=== PATIENT | female | born 1945 | race Caucasian/White ===

== ENCOUNTER 2017-03-28 18:38 | Inpatient (IN) | payer MEDICARE ==
[~2017-03-28] VITALS: Ht 167.6 cm; Wt 82.7 kg
[~2017-03-28 18:38] MED LIST: ALB6.7R INH; ALLO-2 PO; AML5 PO; AMLO-96 PO; AMOX-559 PO; ASPI1TAB35 PO; ATOR-1 PO; AZEL205.; AZIT-17 PO; CEPH500C24 PO; CHOL100052 PO; CLIN300C99 PO; CYCL10TA29 PO; CYCL1DRO6 OP; CYCL1DRO6 OU; DIPH-618 PO; DUL100/5PT INH; DUL30 PO; DULO30CA35 PO; DULO60CA56 PO; DULO60CA7 PO; DUONEB INH; ERTA1VIA2 IV; FISH OIL 500 M500 MG PO; FLU150 PO; FLU180SY9 IM; FLU45SYR25 IM ONLY; FLUC150T40 PO; FLUT16SP19 NS; FOLTX PO; FURO-43 PO; FURO20TA19 PO; GAB800PT PO; GABA-549 PO; HYDR30CR10 VA; IBU600 PO; KRIL1CAP6 PO; LEV112 PO; LEV125 PO; LEVO-85 PO; LEVO112T43 PO; LEVO112T9 PO; LEVO137T23 PO; LEVO25TA61 PO; LEVO50TA86 PO; LEVO75TA73 PO; LOSA100T62 PO; LOSA100T67 PO; LUBI24CA8 PO; MELO-150 PO; MELO-207 PO; MET800 PO; META800T18 PO; METO100T20 PO; METO50TA19 PO; MORP-181 PO; MORP20CA16 PO; MOXI400T28 PO; Multivitamins PO; NITR-1 PO; NITR-105 PO; OMEG500C7 PO; OXYB5TAB86 PO; OXYC-865 PO; OXYC-870 PO; OXYC-944 PO; OXYGEN; PNEU0.5D3 IM; POTA-35 PO; POTC540 PO; PRAV40TA78 PO; PRED-314 PO; SIMV-44 PO; SOLI10TA8 PO; VITA150T2 PO; VITA1CAP46 PO; [UNRECOGNIZED DRUG - CODE]; [UNRECOGNIZED DRUG - CODE] PO; [UNRECOGNIZED DRUG - CODE] PO; [UNRECOGNIZED DRUG - CODE] PO
[2017-03-28] MEDS ORDERED: ALBUTEROL/IPRATROPIUM 3 ML NEB NEB ONE (19:15)
--- NOTE | 2017-03-28 19:39 | ER Report ---
History and Physical Time Seen By MD: 18:44 Hx. of Stated Complaint: SOB, "NOT ACTING RIGHT" PER DAUGHTER X 2 DAYS, COLD ALL THE TIME HPI/ROS CHIEF COMPLAINT: Cough, fever HISTORY OF PRESENT ILLNESS: This is a 71-year-old female accompanied by her daughter, who presents the ED with complaint of cough and fever for the past week. Daughter states that the patient is most and oxygen at home during the day but she has not been on this or months. Patient denies any shortness of breath but daughter states that the patient has been confused recently. She states that the patient has had intermittent cough and wanted to get cough medications. She states that the patient was uncertain of the day. Patient has not had any nausea or vomiting. She denies any chest pain. Patient does not of the month but does not know the day. She said that it maybe Saturday. REVIEW OF SYSTEMS: Constitutional: See History of present illness. Eyes: No discharge. ENT: No sore throat. Cardiovascular: See history of present illness. No palpitations. Respiratory: . See history of present illness. Gastrointestinal: No abdominal pain, no vomiting. Genitourinary: No hematuria. Musculoskeletal: No back pain. Skin: No rashes. Neurological: No headache. Allergies: Coded Allergies: Sulfa (Sulfonamide Antibiotics) (Verified Allergy, Mild, SWELLING, ) Home Meds Active Scripts Levothyroxine Sodium (Levo-T) 112 Mcg Tablet, 1 TAB PO DAILY, #60 TAB 0 Refills Prov:DANNI STEWART MD 02/20/17 Gabapentin (GABAPENTIN) 300 Mg Capsule, 3 TAB PO QAM, #630 CAPSULE 3 Refills TAKE 2 in am and 5 in pm Prov:DANNI STEWART MD 02/11/17 Oxybutynin Chloride (OXYBUTYNIN CHLORIDE) 5 Mg Tablet, 1 TAB PO QDAY, #90 TAB 3 Refills Prov:DANNI STEWART MD 02/11/17 Duloxetine HCl (Duloxetine HCl) 60 Mg Capsule.dr, 2 CAP PO DAILY, #180 TAB 3 Refills Prov:DANNI STEWART MD 02/11/17 Atorvastatin Calcium (ATORVASTATIN CALCIUM) 80 Mg Tablet, 1 TAB PO QDAY, #90 TAB 3 Refills Prov:DANNI STEWART MD 02/11/17 Metoprolol Succinate (METOPROLOL SUCCINATE) 100 Mg Tab.er.24h, 1 TAB PO QDAY, # 90 TAB 3 Refills Prov:DANNI STEWART MD 02/11/17 Allopurinol (Allopurinol) 300 Mg Tablet, 1 TAB PO DAILY, #90 TAB 3 Refills Prov:DANNI STEWART MD 02/11/17 Cyclobenzaprine Hcl (CYCLOBENZAPRINE HCL) 10 Mg Tablet, 1 TAB PO QHS, #90 TAB 3 Refills Prov:DANNI STEWART MD 02/11/17 [place]-3 (FISH OIL 500 MG SOFTGEL) 500 Mg Cap, 500 MG PO QDAY, #30 CAP Prov:CHRISTY BRANHAM MD 10/19/15 Cyclosporine (RESTASIS) 1 Each Droperette, 1 EACH OU BID, #1 BOT Prov:CHRISTY BRANHAM MD 10/19/15 Reported Medications Diphenhydramine Hcl (DIPHENHYDRAMINE HCL) 25 Mg Tablet, 25 MG PO PRN, TAB 02/11/17 Aspirin/Acetaminophen/Caffeine (EXCEDRIN EXTRA STRENGTH CAPLET) 1 Each Tablet, 1 EACH PO 02/11/17 Multivits,Th W-Fe,Other Min (COMPLETE MULTIVITAMIN) 1 Each Tablet, 1 TAB PO DAILY 09/08/15 Vitamin B Complex (VITAMIN B COMPLEX) 1 Each Capsule, 1 EACH PO QDAY, CAPSULE 12/24/13 [Oxygen ] No Conflict Check, 2-3 L NA DAILY ON CONTINUOUSLY 08/26/13 Oxycodone Hcl/Acetaminophen (PERCOCET 10-325 MG TABLET) 1 Each Tablet, 1 EACH PO QID Y for PAIN q 4 hr as needed for pain 08/23/13 Morphine Sulfate (MS CONTIN) 15 Mg Tablet.er, 15 MG PO QID 08/23/13 Discontinued Scripts Levofloxacin 500 Mg Tab (LEVAQUIN 500 MG TAB) 500 Mg Tablet, 500 MG PO DAILY, # 5 TAB Prov:DANNI STEWART MD 02/27/17 Sodium Chloride/Nahco3/Kcl/Peg (PEG-3350 SOLUTION) 4,000 Ml Soln.recon, 1 GAL PO ONCE, #1 GAL 0 Refills Prov:SHEILA SPARKS MD 02/27/17 [Multivitamins] 1 EA TAB No Conflict Check, 1 EACH PO QDAY, #30 TAB Prov:CHRISTY BRANHAM MD 10/19/15 Reviewed Nurses Notes: Yes Old Medical Records Reviewed: Yes Hx Smoking: No Smoking Status: Former Smoker Exposure to Second Hand Smoke?: No Hx Substance Use Disorder: No Hx Alcohol Use: Yes Constitutional Vital Sign - Last 24 Hours 03/28/17 03/28/17 03/28/17 03/28/17 18:43 18:45 18:46 18:53 Temp 98.8 Pulse 87 86 Resp 16 15 B/P (MAP) 148/75 117/111 (113) 148/75 (99) Pulse Ox 77 93 O2 Delivery Room Air 03/28/17 03/28/17 03/28/17 03/28/17 19:00 19:08 19:23 19:30 Pulse 82 81 Resp 18 13 B/P (MAP) 129/72 (91) ???/??? (1665) Pulse Ox 92 03/28/17 03/28/17 03/28/17 03/28/17 19:33 19:35 19:38 20:15 Pulse 80 84 86 Resp 28 24 B/P (MAP) 119/51 (73) Physical Exam General Appearance: The patient is alert, has no immediate need for airway protection and no signs of toxicity. She appears to be no acute distress. Eyes: Pupils equal and round no pallor or injection. ENT, Mouth: Mucous membranes are moist. Respiratory: There are no retractions. Bilateral wheezing appreciated. Cardiovascular: Regular rate and rhythm. Gastrointestinal: Abdomen is soft and non tender, no masses, bowel sounds normal. Neurological: Cranial nerves II through XII intact. Skin: Warm and dry, no rashes. Musculoskeletal: Neck is supple non tender. Extremities are nontender, nonswollen and have full range of motion. DIFFERENTIAL DIAGNOSIS: After history and physical exam differential diagnosis was considered for shortness of breath including but not limited to pulmonary infectious process, COPD, asthma, pulmonary embolus and congestive heart failure. Medical Decision Making Data Points Result Diagram: 03/28/17193903/28/171939 Laboratory Hematology Test 03/28/17 19:40 Red Blood Count 4.66 M/uL (4.17-5.56) Mean Corpuscular Volume 96.6 fL (80.0-96.0) Mean Corpuscular Hemoglobin 33.3 pg (26.0-33.0) Mean Corpuscular Hemoglobin Concent 34.5 g/dL (32.0-36.0) Red Cell Distribution Width 14.8 % (11.5-14.5) Mean Platelet Volume 7.4 fL (7.2-11.1) Neutrophils (%) (Auto) 73.1 % (39.4-72.5) Lymphocytes (%) (Auto) 13.0 % (17.6-49.6) Monocytes (%) (Auto) 9.5 % (4.1-12.4) Eosinophils (%) (Auto) 3.4 % (0.4-6.7) Basophils (%) (Auto) 1.0 % (0.3-1.4) Nucleated RBC Relative Count (auto) 0.1 /100WBC Neutrophils # (Auto) 6.1 K/uL (2.0-7.4) Lymphocytes # (Auto) 1.1 K/uL (1.3-3.6) Monocytes # (Auto) 0.8 K/uL (0.3-1.0) Eosinophils # (Auto) 0.3 K/uL (0.0-0.5) Basophils # (Auto) 0.1 K/uL (0.0-0.1) Nucleated RBC Absolute Count (auto) 0.01 K/uL Prothrombin Time 14.0 seconds (12.0-14.4) Prothromb Time International Ratio 1.08 Activated Partial Thromboplast Time 28 seconds (23-35) Sodium Level 138 mmol/L (137-145) Potassium Level 3.9 mmol/L (3.5-5.0) Chloride Level 101 mmol/L (98-107) Carbon Dioxide Level 24 mmol/L (22-31) Blood Urea Nitrogen 37 mg/dl (7-18) Creatinine 1.20 mg/dl (0.52-1.04) Glomerular Filtration Rate Calc 44.0 Random Glucose 130 mg/dl (75-110) Calcium Level 9.2 mg/dl (8.4-10.2) Total Bilirubin 0.7 mg/dl (0.2-1.3) Aspartate Amino Transf (AST/SGOT) 20 U/L (0-35) Alanine Aminotransferase (ALT/SGPT) 35 U/L (0-56) Alkaline Phosphatase 109 U/L (0-126) Troponin I < 0.012 ng/ml B-Type Natriuretic Peptide 68 pg/ml (0-100) Total Protein 7.1 gm/dl (6.3-8.2) Albumin 3.9 g/dl (3.5-5.0) Chemistry Test 03/28/17 19:40 White Blood Count 8.4 k/uL (4.5-11.0) Red Blood Count 4.66 M/uL (4.17-5.56) Hemoglobin 15.5 g/dL (12.0-16.0) Hematocrit 45.0 % (34.0-47.0) Mean Corpuscular Volume 96.6 fL (80.0-96.0) Mean Corpuscular Hemoglobin 33.3 pg (26.0-33.0) Mean Corpuscular Hemoglobin Concent 34.5 g/dL (32.0-36.0) Red Cell Distribution Width 14.8 % (11.5-14.5) Platelet Count 253 K/uL (150-450) Mean Platelet Volume 7.4 fL (7.2-11.1) Neutrophils (%) (Auto) 73.1 % (39.4-72.5) Lymphocytes (%) (Auto) 13.0 % (17.6-49.6) Monocytes (%) (Auto) 9.5 % (4.1-12.4) Eosinophils (%) (Auto) 3.4 % (0.4-6.7) Basophils (%) (Auto) 1.0 % (0.3-1.4) Nucleated RBC Relative Count (auto) 0.1 /100WBC Neutrophils # (Auto) 6.1 K/uL (2.0-7.4) Lymphocytes # (Auto) 1.1 K/uL (1.3-3.6) Monocytes # (Auto) 0.8 K/uL (0.3-1.0) Eosinophils # (Auto) 0.3 K/uL (0.0-0.5) Basophils # (Auto) 0.1 K/uL (0.0-0.1) Nucleated RBC Absolute Count (auto) 0.01 K/uL Prothrombin Time 14.0 seconds (12.0-14.4) Prothromb Time International Ratio 1.08 Activated Partial Thromboplast Time 28 seconds (23-35) Glomerular Filtration Rate Calc 44.0 Calcium Level 9.2 mg/dl (8.4-10.2) Total Bilirubin 0.7 mg/dl (0.2-1.3) Aspartate Amino Transf (AST/SGOT) 20 U/L (0-35) Alanine Aminotransferase (ALT/SGPT) 35 U/L (0-56) Alkaline Phosphatase 109 U/L (0-126) Troponin I < 0.012 ng/ml B-Type Natriuretic Peptide 68 pg/ml (0-100) Total Protein 7.1 gm/dl (6.3-8.2) Albumin 3.9 g/dl (3.5-5.0) Coagulation Test 03/28/17 19:40 Prothrombin Time 14.0 seconds Prothromb Time International Ratio 1.08 Activated Partial Thromboplast Time 28 seconds EKG/Imaging EKG Interpretation 12 lead EKG: Rhythm: normal sinus rhythm, rate [address] segments: No acute ST changes identified. Monitor Interpretation: Normal Sinus Rhythm Imaging CXR: IMPRESSION: Perihilar and infrahilar mild peribronchial inflammation is suggestive of a bronchitis versus reactive airway disease although an aspiration pneumonitis could be considered in the appropriate setting as well. Report Dictated By: Ayo Sepncer MD at 03/28/2017 8:22 PM Report E-Signed By: Ayo Spencer MD at 03/28/2017 8:[address] Head: IMPRESSION: 1. No CT evidence of acute intracranial pathology. 2. Mild chronic age-related changes. Report Dictated By: Austin Reaves MD at 03/28/2017 8:34 PM Report E-Signed By: Austin Reaves MD at 03/28/2017 8:38 PM ED Course/Re-evaluation ED Course Will obtain labs, chest x-ray, EKG. Patient initially was 76% on room air on arrival. She was placed on 2 L of oxygen and now is at 91%. Will give patient DuoNeb treatment. 03/28/2017 9:02:58 pm - discussed with patient and daughter all labs, imaging, EKG. It appears that she does have some bronchial inflammation noted on her chest x-ray. Her wheezing has resolved with the DuoNeb treatment. Likely she has a COPD exacerbation. We will treat with prednisone, nebulizer treatments, Zithromax. Patient needs to continue oxygen therapy at home. Discussed this with her and she states that she will be using this now. Decision to Disposition Date: Mar 28, 2017 Decision to Disposition Time: 21:03 Depart Departure Latest Vital Signs Vital Signs Date Time Temp Pulse Resp B/P (MAP) Pulse Ox O2 Delivery O2 Flow Rate FiO2 03/28/17 20:15 119/51 (73) 03/28/17 19:38 86 24 03/28/17 19:23 92 03/28/17 18:43 98.8 Room Air Impression: Primary Impression: Acute exacerbation of chronic obstructive pulmonary disease (COPD) Condition: Improved Disposition: HOME OR SELF-CARE New Scripts Ipratropium/Albuterol Sulfate (IPRAT-ALBUT 0.5-3(2.5) MG/3 ML) 3 Ml Ampul.neb 3 ML IH PRN, #1 BOX Prov: ROSALBA DUMONT PA-C 03/28/17 Azithromycin (ZITHROMAX) 250 Mg Tablet 0 PO QDAY, #6 TAB Prov: ROSALBA DUMONT PA-C 03/28/17 Prednisone (PREDNISONE) 20 Mg Tablet 20 MG PO BID, #10 TAB Prov: ROSALBA DUMONT PA-C 03/28/17 Patient Instructions: COPD (Chronic Obstructive Pulmonary Disease) (ED) Additional Instructions: Stay well-hydrated. Follow-up with primary care provider in one to 2 days. If having any worsening or concerning symptoms may return to the emergency department. ROSALBA DUMONT PA-C Mar 28, 2017 19:39
[2017-03-28 19:54] LABS: PLATELET COUNT, AUTOMATED 253 K/uL (150-450)
[2017-03-28 19:57] LABS: INR 1.08
[2017-03-28] MEDS ORDERED: NS(*) 0.9% 500 ML BAG 500 ML IV ONE (20:20)
--- NOTE | 2017-03-28 20:27 | RADIOLOGY IMAGING REPORT ---
FACILITY: [facility] PATIENT NAME: Lauren Kuhn : 1945 MR: [id number] V: [id number] EXAM DATE: ORDERING PHYSICIAN: ROSALBA DUMONT TECHNOLOGIST: Location: [facility] - [place] Patient: Lauren Kuhn : 1945 Visit/Account:[id number] Date of Sevice: 03/28/2017 Examination: CHEST PA AND LAT Comparison: 11/11/2015 History: Respiratory distress Findings: Consolidation or nodule. Mild predominantly perihilar and infrahilar peribronchial inflamma tion. No pneumothorax, edema, or effusion. Cardiac and hilar contour size is within normal limits. In completely visualized lumbar fusion hardware. No acute osseous abnormality. IMPRESSION: Perihilar and infrahilar mild peribronchial inflammation is suggestive of a bronchitis versus reactiv e airway disease although an aspiration pneumonitis could be considered in the appropriate setting as well. Report Dictated By: Ayo Spencer MD at 03/28/2017 8:22 PM Report E-Signed By: Ayo Spencer MD at 03/28/2017 8:24 PM WSN:[id number]
--- NOTE | 2017-03-28 20:42 | RADIOLOGY IMAGING REPORT ---
FACILITY: [facility] PATIENT NAME: Lauren Kuhn : 1945 MR: [id number] V: [id number] EXAM DATE: ORDERING PHYSICIAN: ROSALBA DUMONT TECHNOLOGIST: Location: [facility] - [place] Patient: Lauren Kuhn : 1945 Visit/Account:[id number] Date of Sevice: 03/28/2017 EXAMINATION: CT head without IV contrast HISTORY: Confusion. TECHNIQUE: Axial CT images of the head were obtained from the vertex to the skull base without IV c ontrast, with coronal and sagittal 2D reconstructed images. One of the following dose optimization techniques was utilized in the performance of this exam: Autom ated exposure control; adjustment of the mA and/or kV according to the patient's size; or use of an i terative reconstruction technique. Specific details can be referenced in the facility's radiology C T exam operational policy. COMPARISON: None. FINDINGS: There is mild age-appropriate parenchymal volume loss, with slight patchy low attenuation in the deep white matter, suggesting chronic small vessel ischemic change. No CT evidence of intracranial hemorrhage, mass lesion, or acute infarct. No midline shift or extra-a xial fluid collections. Huang-white differentiation is maintained. The calvarium is intact. The partially visualized paranasal sinuses and mastoid air cells are unopaci fied. IMPRESSION: 1. No CT evidence of acute intracranial pathology. 2. Mild chronic age-related changes. Report Dictated By: Austin Reaves MD at 03/28/2017 8:34 PM Report E-Signed By: Austin Reaves MD at 03/28/2017 8:38 PM WSN:[id number]
--- NOTE | 2017-03-28 21:24 | EKG ---
FACILITY: [facility] PATIENT NAME: JENNIFER SADLER : [id number] MR: [id number] V: [id number] EXAM DATE: ORDERING PHYSICIAN: ROSALBA DUMONT TECHNOLOGIST: ASHLEY Test Reason : SOB Blood Pressure : / mmHG Vent. Rate : 080 BPM Atrial Rate : 080 BPM P-R Int : 168 ms QRS Dur : 088 ms QT Int : 374 ms P-R-T Axes : 040 068 090 degrees QTc Int : 431 ms Normal sinus rhythm Possible Left atrial enlargement Nonspecific ST abnormality Abnormal ECG When compared with ECG of 10-OCT-2015 05:30, Nonspecific T wave abnormality now evident in Lateral leads Confirmed by HAZEL BURGER ([id number]) on 03/29/2017 12:26:51 AM Referred By: Confirmed By:HAZEL BURGER
[2017-03-28] MEDS ORDERED: IPRA3AMP21 IH (21:25)
[2017-03-28] MEDS ORDERED: AZIT-1 PO (21:25)
[2017-03-28] MEDS ORDERED: PRED20TA6 PO (21:25)
[2017-03-28] MEDS ORDERED: cefTRIAXone 1 GM VIAL IVP ONE (23:05)
[2017-03-29] MEDS ORDERED: INFLUENZA VIRUS VAC 0.5 ML SYR IM ONLY ONE
[2017-03-29] MEDS ORDERED: ALBUTEROL/IPRATROPIUM 3 ML NEB NEB PRN (00:10)
[2017-03-29] MEDS ORDERED: AZITHROMYCIN(*) 500 MG 500 MG ONE (00:16)
[2017-03-29] MEDS ORDERED: WATER STERILE(*) 10 ML VIAL 10 ML ONE (00:16)
[2017-03-29] MEDS ORDERED: NS(*) 0.9% 250 ML BAG 250 ML ONE (00:16)
[2017-03-29 00:28] VITALS: BP 113/55
--- NOTE | 2017-03-29 00:39 | History & Physical ---
History of Present Illness History of Present Illness 71yo female with a h/o chronic back pain who was brought to the ER for confusion. She was in her normal state of health until this afternoon. Her noted that she was saying bizarre things. The daughter came to check on her and noted the confusion, also. She was talking about her son and mixing up events. The patient has had a cough for weeks. She hasn't had any focal weakness. No cp/n/v/abdominal pain. In the ER, it was felt that she had a COPD exacerbation. She given a DuoNeb and 500cc of fluid. The patient's mental status was fairly clear. She was going to go home and then became confused again. History Problems: (1) Ventral hernia without obstruction or gangrene Status: Chronic (2) Hypertension Status: Chronic (3) Overweight (BMI 25.0-29.9) Status: Chronic (4) Post laminectomy syndrome Status: Chronic (5) Impaired fasting glucose Status: Chronic Home Meds Active Scripts Ipratropium/Albuterol Sulfate (IPRAT-ALBUT 0.5-3(2.5) MG/3 ML) 3 Ml Ampul.neb, 3 ML IH PRN, #1 BOX Prov:ROSALBA DUMONT PA-C 03/28/17 Azithromycin (ZITHROMAX) 250 Mg Tablet, 0 PO QDAY, #6 TAB Prov:ROSALBA DUMONT PA-C 03/28/17 Prednisone (PREDNISONE) 20 Mg Tablet, 20 MG PO BID, #10 TAB Prov:ROSALBA DUMONT PA-C 03/28/17 Levothyroxine Sodium (Levo-T) 112 Mcg Tablet, 1 TAB PO DAILY, #60 TAB 0 Refills Prov:DANNI STEWART MD 02/20/17 Gabapentin (GABAPENTIN) 300 Mg Capsule, 3 TAB PO QAM, #630 CAPSULE 3 Refills TAKE 2 in am and 5 in pm Prov:DANNI STEWART MD 02/11/17 Oxybutynin Chloride (OXYBUTYNIN CHLORIDE) 5 Mg Tablet, 1 TAB PO QDAY, #90 TAB 3 Refills Prov:DANNI STEWART MD 02/11/17 Duloxetine HCl (Duloxetine HCl) 60 Mg Capsule.dr, 2 CAP PO DAILY, #180 TAB 3 Refills Prov:DANNI STEWART MD 02/11/17 Atorvastatin Calcium (ATORVASTATIN CALCIUM) 80 Mg Tablet, 1 TAB PO QDAY, #90 TAB 3 Refills Prov:DANNI STEWART MD 02/11/17 Metoprolol Succinate (METOPROLOL SUCCINATE) 100 Mg Tab.er.24h, 1 TAB PO QDAY, # 90 TAB 3 Refills Prov:DANNI STEWART MD 02/11/17 Allopurinol (Allopurinol) 300 Mg Tablet, 1 TAB PO DAILY, #90 TAB 3 Refills Prov:DANNI STEWART MD 02/11/17 Cyclobenzaprine Hcl (CYCLOBENZAPRINE HCL) 10 Mg Tablet, 1 TAB PO QHS, #90 TAB 3 Refills Prov:DANNI STEWART MD 02/11/17 [place]-3 (FISH OIL 500 MG SOFTGEL) 500 Mg Cap, 500 MG PO QDAY, #30 CAP Prov:CHRISTY BRANHAM MD 10/19/15 Cyclosporine (RESTASIS) 1 Each Droperette, 1 EACH OU BID, #1 BOT Prov:CHRISTY BRANHAM MD 10/19/15 Reported Medications Diphenhydramine Hcl (DIPHENHYDRAMINE HCL) 25 Mg Tablet, 25 MG PO PRN, TAB 02/11/17 Aspirin/Acetaminophen/Caffeine (EXCEDRIN EXTRA STRENGTH CAPLET) 1 Each Tablet, 1 EACH PO 02/11/17 Multivits,Th W-Fe,Other Min (COMPLETE MULTIVITAMIN) 1 Each Tablet, 1 TAB PO DAILY 09/08/15 Vitamin B Complex (VITAMIN B COMPLEX) 1 Each Capsule, 1 EACH PO QDAY, CAPSULE 12/24/13 [Oxygen ] No Conflict Check, 2-3 L NA DAILY ON CONTINUOUSLY 08/26/13 Oxycodone Hcl/Acetaminophen (PERCOCET 10-325 MG TABLET) 1 Each Tablet, 1 EACH PO QID Y for PAIN q 4 hr as needed for pain 08/23/13 Morphine Sulfate (MS CONTIN) 15 Mg Tablet.er, 15 MG PO QID 08/23/13 Discontinued Scripts Levofloxacin 500 Mg Tab (LEVAQUIN 500 MG TAB) 500 Mg Tablet, 500 MG PO DAILY, # 5 TAB Prov:DANNI STEWART MD 02/27/17 Sodium Chloride/Nahco3/Kcl/Peg (PEG-3350 SOLUTION) 4,000 Ml Soln.recon, 1 GAL PO ONCE, #1 GAL 0 Refills Prov:SHEILA SPARKS MD 02/27/17 [Multivitamins] 1 EA TAB No Conflict Check, 1 EACH PO QDAY, #30 TAB Prov:CHRISTY BRANHAM MD 10/19/15 Allergies: Coded Allergies: Sulfa (Sulfonamide Antibiotics) (Verified Allergy, Mild, SWELLING, ) Patient History: FH: COPD (chronic obstructive pulmonary disease) SISTER, Age:70 SISTER, Age:60 FH: breast cancer MOTHER, , Age:69 FH: liver cancer FATHER, , Age:69 FH: lung cancer BROTHER, , Age:62 FH: ovarian cancer MOTHER, , Age:69 FH: smoking FATHER, , Age:69 SISTER, Age:70 SISTER, Age:60 BROTHER, , Age:62 Hx Smoking: No Smoking Status: Former Smoker Exposure to Second Hand Smoke?: No Caffeine Intake: Tea Caffeine/Cups Per Day: 12 Hx Alcohol Use: Yes Hx Substance Use Disorder: No Social Drug Use: Never Review of Systems All Systems Reviewed/Normal: Yes, Except as Noted Exam Vital Signs Vital Signs Date Time Temp Pulse Resp B/P (MAP) Pulse Ox O2 Delivery O2 Flow Rate FiO2 03/28/17 22:59 100.2 03/28/17 21:36 127/63 (84) 03/28/17 21:35 82 22 03/28/17 20:50 93 03/28/17 20:00 2.0 03/28/17 18:43 Room Air General Appearance: Awake, No Acute Distress Neuro: Other (No facial droop. Follows commands. Equal strength in the extremities. Confused to place and date. Thinks she is with her son.) Cardiovascular: Regular Rate and Rhythm Respiratory: Other (Bibasilar insp crackles) GI: Abd Soft and Non-Tender Extremities: No Edema Integumentary: Other (Erythema on ankles and feet bilaterally. <2 second capillary refill. Strong DP pulses bilaterally) Medical Decision Making Data Points Result Diagram: 03/28/17193903/28/171939 Item Value Date Time Neutrophils (%) (Auto) 73.1 % H 03/28/171939 Lymphocytes (%) (Auto) 13.0 % L 03/28/171939 Hemoglobin 16.1 g/dL H 02/08/17 1654 Hemoglobin 15.5 g/dL 03/28/171939 Hemoglobin 17.5 g/dL H 09/27/16 1454 Creatinine 1.20 mg/dl H 03/28/171939 Blood Urea Nitrogen 37 mg/dl H 03/28/171939 Blood Urea Nitrogen 18 mg/dl 02/08/17 1654 Creatinine 0.80 mg/dl 02/08/171653 Random Glucose 130 mg/dl H 03/28/171939 Random Glucose 103 mg/dl 02/08/174 Troponin I < 0.012 ng/ml 03/28/171939 B-Type Natriuretic Peptide 68 pg/ml 03/28/171939 Alkaline Phosphatase 109 U/L 03/28/171939 Alanine Aminotransferase (ALT/SGPT) 35 U/L 03/28/171939 Aspartate Amino Transf (AST/SGOT) 20 U/L 03/28/171939 Total Bilirubin 0.7 mg/dl 03/28/171939 Calcium Level 9.2 mg/dl 03/28/171939 Arterial Blood pH 7.33 L 03/28/172254 Arterial Blood Partial Pressure CO2 39 mmHg H 03/28/172254 Arterial Blood Partial Pressure O2 57 mmHg L 03/28/172254 Arterial Blood HCO3 20 mmol/L 03/28/172254 Arterial Blood Oxygen Saturation 86 % L 03/28/172254 EKG / Imaging Imaging Head CT - 1. No CT evidence of acute intracranial pathology. 2. Mild chronic age-related changes. CXR - Perihilar and infrahilar mild peribronchial inflammation is suggestive of a bronchitis versus reactive airway disease although an aspiration pneumonitis could be considered in the appropriate setting as well. Assessment and Plan Problems: (1) Acute exacerbation of chronic obstructive pulmonary disease (COPD) Status: Acute Assessment & Plan: She presented with worsening cough, wheezing and hypoxia. She developed a fever to 100.2 in the ER. No obvious infiltrate on CXR. She is not wheezy on my exam. Will not given any steroids at this time but treat with DuoNeb as needed. Ceftriaxone and Azithromycin started and blood cultures pending. Recheck CXR in the morning after hydration. (2) Confusion Status: Acute Assessment & Plan: Likely secondary to chronic medications for back pain and acute illness. We need to clarify what the patient is taking. Will continue Gabapentin but at a lower dose. Will hold cyclobenzaprine. Will decrease Percocet to 5/325 prn. Will continue MS Contin. Head CT was wnl. Might need an MRI if continuing to have waxing and waning symptoms. (3) Elevated serum creatinine Status: Acute Assessment & Plan: Likely secondary to dehydration. Will hydrate and follow. Lactate in the morning. She did have a mild metabolic acidosis on ABG. (4) Impaired fasting glucose Status: Chronic Assessment & Plan: Will recheck glucose tomorrow. (5) Hypothyroidism Status: Chronic Assessment & Plan: Continue levothyroxine. (6) Hypertension Status: Chronic Assessment & Plan: Continue Toprol. (7) Post laminectomy syndrome Status: Chronic Assessment & Plan: She is on Cymbalta, MS Contin, Gabapentin, Percocet and Flexeril. See above. Copies to: DANNI STEWART MD Venous Thromboembolism Antithrombotics Is Pt On Any Antithrombotics?: No Exam Sepsis Risk: No Definite Risk HAZEL BURGER MD Mar 29, 2017 00:39
[2017-03-29] MEDS: NS(*) 0.9% 1000 ML BAG 1,000 ML IV PRN ×2 (00:54→17:28)
[2017-03-29] MEDS: AZITHROMYCIN(*) 500 MG 500 MG in NS(*) 0.9% 250 ML BAG 250 ML IVPB SCH ×2 (00:55→01:00)
[2017-03-29 04:15] VITALS: BP 129/57
[2017-03-29] MEDS: LEVOTHYROXINE SOD 0.112 MG TAB PO SCH (05:59)
[2017-03-29 06:09] LABS: PLATELET COUNT, AUTOMATED 240 K/uL (150-450)
--- NOTE | 2017-03-29 06:51 | RADIOLOGY IMAGING REPORT ---
FACILITY: [facility] PATIENT NAME: Lauren Kuhn : 1945 MR: [id number] V: [id number] EXAM DATE: ORDERING PHYSICIAN: HAZEL BURGER TECHNOLOGIST: Location: [facility] Patient: Lauren Kuhn : 1945 Visit/Account:[id number] Date of Sevice: 03/29/2017 SINGLE AP RADIOGRAPH OF THE CHEST 03/29/2017 6:00 AM. INDICATION: hypoxia, fever COMPARISON: 03/28/2017. FINDINGS: Is increased patchy opacification at the left lower lung with associated volume loss. Right lung is well expanded and clear. No definite pleural effusion or pneumothorax. Heart size is normal. IMPRESSION: Left base opacity with volume loss likely at least partially due to atelectasis, though u nderlying infectious consolidation and aspiration are also considerations. Report Dictated By: Odell Jenkins MD at 03/29/2017 6:46 AM Report E-Signed By: Odell Jenkins MD at 03/29/2017 6:47 AM WSN:[id number]
[2017-03-29 08:11] VITALS: BP 124/65
[2017-03-29] MEDS: MORPHINE CR 15 MG TABCR PO SCH ×4 (09:00→21:29)
[2017-03-29] MEDS: DULoxetine HCL 30 MG CAPCR PO SCH (09:29)
[2017-03-29] MEDS: GABAPENTIN 300 MG CAP PO SCH ×2 (09:29→21:29)
[2017-03-29] MEDS: METOPROLOL SUCC XL 50 MG TABCR 50 MG TAB.ER.24H PO SCH (09:29)
[2017-03-29] MEDS: ALLOPURINOL 300 MG TAB PO SCH (09:29)
[2017-03-29] MEDS: OXYBUTYNIN CHL 5 MG TAB PO SCH (09:30)
[2017-03-29] MEDS: cycloSPORINE 0.05% EMUL 1 DROP OU SCH ×2 (09:30→21:29)
[2017-03-29] MEDS: ENOXAPARIN 40 MG/0.4ML SYR SC SCH (09:30)
[2017-03-29 11:31] VITALS: BP 136/77
[2017-03-29] MEDS ORDERED: guaiFENesin/CODEINE 5 ML UDBTL PO PRN (12:20)
[2017-03-29 14:28] VITALS: Ht 167.6 cm; Wt 82.7 kg
[2017-03-29 17:29] VITALS: BP 136/72
[2017-03-29 23:51] VITALS: BP 125/67
[2017-03-30] MEDS ORDERED: AZITHROMYCIN(*) 500 MG 500 MG in NS(*) 0.9% 250 ML BAG 250 ML IVPB SCH (01:00)
[2017-03-30] MEDS: AZITHROMYCIN(*) 500 MG 500 MG in NS(*) 0.9% 250 ML BAG 250 ML IVPB SCH (01:12)
[2017-03-30 04:12] VITALS: BP 123/80
[2017-03-30] MEDS: NS(*) 0.9% 1000 ML BAG 1,000 ML IV PRN (05:34)
[2017-03-30] MEDS: LEVOTHYROXINE SOD 0.112 MG TAB PO SCH (06:26)
[2017-03-30 07:50] VITALS: BP 141/72
[2017-03-30] MEDS: GABAPENTIN 300 MG CAP PO SCH (09:12)
[2017-03-30] MEDS: METOPROLOL SUCC XL 50 MG TABCR 50 MG TAB.ER.24H PO SCH (09:12)
[2017-03-30] MEDS: MORPHINE CR 15 MG TABCR PO SCH (09:12)
[2017-03-30] MEDS: OXYBUTYNIN CHL 5 MG TAB PO SCH (09:12)
[2017-03-30] MEDS: ALLOPURINOL 300 MG TAB PO SCH (09:13)
[2017-03-30] MEDS: DULoxetine HCL 30 MG CAPCR PO SCH (09:13)
[2017-03-30] MEDS: ENOXAPARIN 40 MG/0.4ML SYR SC SCH (09:13)
[2017-03-30] MEDS ORDERED: AZIT-1 PO (11:43)
--- NOTE | 2017-03-30 21:27 | Hospitalist Depart ---
Discharge Summary Reason for Hosp/Final Diag: (1) Acute exacerbation of chronic obstructive pulmonary disease (COPD) Status: Acute Hospital Course & Plan: 71yo female with a h/o chronic back pain who was brought to the ER for confusion. She was in her normal state of health until this afternoon. Her noted that she was saying bizarre things. The daughter came to check on her and noted the confusion, also. She was talking about her son and mixing up events. The patient has had a cough for weeks. She hasn't had any focal weakness. No cp/n/v/abdominal pain. In the ER, it was felt that she had a COPD exacerbation. She given a DuoNeb and 500cc of fluid. The patient's mental status was fairly clear. She was going to go home and then became confused again. She presented with worsening cough, wheezing and hypoxia. She developed a fever to 100.2 in the ER. No obvious infiltrate on CXR. She is not wheezy on my exam. Will not given any steroids at this time but treat with DuoNeb as needed. Ceftriaxone and Azithromycin started and blood cultures pending. Recheck CXR in the morning after hydration. 03/30: She did well with the management and she is doing better without any complaint of SOB/CP/N/V/D/C/Abd.Pain etc. She will be d/c'd today home and f/u with her PCP. (2) Confusion Status: Resolved Hospital Course & Plan: Likely secondary to chronic medications for back pain and acute illness. We need to clarify what the patient is taking. Will continue Gabapentin but at a lower dose. Will hold cyclobenzaprine. Will decrease Percocet to 5/325 prn. Will continue MS Contin. Head CT was wnl. Might need an MRI if continuing to have waxing and waning symptoms. (3) Elevated serum creatinine Status: Resolved Hospital Course & Plan: Likely secondary to dehydration. Will hydrate and follow. Lactate in the morning. She did have a mild metabolic acidosis on ABG. 03/30: Her GFR has improved to >60ml/min (4) Impaired fasting glucose Status: Chronic Hospital Course & Plan: Will recheck glucose tomorrow. (5) Hypothyroidism Status: Chronic Hospital Course & Plan: Continue levothyroxine. (6) Hypertension Status: Chronic Hospital Course & Plan: Continue Toprol. (7) Post laminectomy syndrome Status: Chronic Hospital Course & Plan: She is on Cymbalta, MS Contin, Gabapentin, Percocet and Flexeril. See above. Departure Weight (Pounds): 182 Weight (Ounces): 6.0 Result Diagram: 03/29/1752303/29/17523 Condition: Improved PT/OT Follow Up For: PT For Strengthening Home Health [employer] Follow Up For: ADL Assistance Time Spent: < 30 min Discharge Instructions Home Meds Active Scripts Gabapentin (GABAPENTIN) 300 Mg Capsule, 3 TAB PO QAM, #630 CAPSULE 3 Refills TAKE 2 in am and 5 in pm Prov:DANNI STEWART MD 02/11/17 Oxybutynin Chloride (OXYBUTYNIN CHLORIDE) 5 Mg Tablet, 1 TAB PO QDAY, #90 TAB 3 Refills Prov:DANNI STEWART MD 02/11/17 Duloxetine HCl (Duloxetine HCl) 60 Mg Capsule.dr, 2 CAP PO DAILY, #180 TAB 3 Refills Prov:DANNI STEWART MD 02/11/17 Atorvastatin Calcium (ATORVASTATIN CALCIUM) 80 Mg Tablet, 1 TAB PO QDAY, #90 TAB 3 Refills Prov:DANNI SETWART MD 02/11/17 Metoprolol Succinate (METOPROLOL SUCCINATE) 100 Mg Tab.er.24h, 1 TAB PO QDAY, # 90 TAB 3 Refills Prov:DANNI STEWART MD 02/11/17 Allopurinol (Allopurinol) 300 Mg Tablet, 1 TAB PO DAILY, #90 TAB 3 Refills Prov:DANNI STEWART MD 02/11/17 Cyclobenzaprine Hcl (CYCLOBENZAPRINE HCL) 10 Mg Tablet, 1 TAB PO QHS, #90 TAB 3 Refills Prov:DANNI STEWART MD 02/11/17 [place]-3 (FISH OIL 500 MG SOFTGEL) 500 Mg Cap, 500 MG PO QDAY, #30 CAP Prov:CHRISTY BRANHAM MD 10/19/15 Cyclosporine (RESTASIS) 1 Each Droperette, 1 EACH OU BID, #1 BOT Prov:CHRISTY BRANHAM MD 10/19/15 Reported Medications Azithromycin (ZITHROMAX) 250 Mg Tablet, 2 TAB PO DAILY, TAB 03/30/17 Diphenhydramine Hcl (DIPHENHYDRAMINE HCL) 25 Mg Tablet, 25 MG PO PRN, TAB 02/11/17 Aspirin/Acetaminophen/Caffeine (EXCEDRIN EXTRA STRENGTH CAPLET) 1 Each Tablet, 1 EACH PO PRN 02/11/17 Multivits,Th W-Fe,Other Min (COMPLETE MULTIVITAMIN) 1 Each Tablet, 1 TAB PO DAILY 09/08/15 Vitamin B Complex (VITAMIN B COMPLEX) 1 Each Capsule, 1 EACH PO QDAY, CAPSULE 12/24/13 [Oxygen ] No Conflict Check, 2-3 L NA DAILY ON CONTINUOUSLY 08/26/13 Oxycodone Hcl/Acetaminophen (PERCOCET 10-325 MG TABLET) 1 Each Tablet, 1 EACH PO QID Y for PAIN q 4 hr as needed for pain 08/23/13 Morphine Sulfate (MS CONTIN) 15 Mg Tablet.er, 15 MG PO QID 08/23/13 Discontinued Scripts Ipratropium/Albuterol Sulfate (IPRAT-ALBUT 0.5-3(2.5) MG/3 ML) 3 Ml Ampul.neb, 3 ML IH PRN, #1 BOX Prov:ROSALBA DUMONT PA-C 03/28/17 Azithromycin (ZITHROMAX) 250 Mg Tablet, 0 PO QDAY, #6 TAB Prov:ROSALBA DUMONT PA-C 03/28/17 Prednisone (PREDNISONE) 20 Mg Tablet, 20 MG PO BID, #10 TAB Prov:ROSALBA DUMONT PA-C 03/28/17 Levothyroxine Sodium (Levo-T) 112 Mcg Tablet, 1 TAB PO DAILY, #60 TAB 0 Refills Prov:DANNI STEWART MD 02/20/17 Levofloxacin 500 Mg Tab (LEVAQUIN 500 MG TAB) 500 Mg Tablet, 500 MG PO DAILY, # 5 TAB Prov:DANNI STEWART MD 02/27/17 Sodium Chloride/Nahco3/Kcl/Peg (PEG-3350 SOLUTION) 4,000 Ml Soln.recon, 1 GAL PO ONCE, #1 GAL 0 Refills Prov:SHEILA SPARKS MD 02/27/17 [Multivitamins] 1 EA TAB No Conflict Check, 1 EACH PO QDAY, #30 TAB Prov:CHRISTY BRANHAM MD 10/19/15 Diet: Regular Activity: As Tolerated Special Instructions: Follow up with your primary care physician as needed. Home Health ordered. Venous Thromboembolism Antithrombotics Is Pt On Any Antithrombotics?: No CHARBEL CUELLO MD Mar 30, 2017 21:26
== END 2017-03-30 13:10 | disposition home health service (06) | DRG 191 ==
LOC: ER 18:46 → MED 03-29 00:01
PROVIDERS: ADMIT Internal Medicine; ATTEND Internal Medicine
DX: J44.1 Chronic obstructive pulmonary disease with (acute) exacerbation (principal); E87.2 Acidosis; R09.02 Hypoxemia; E86.0 Dehydration; I10 Essential (primary) hypertension; E03.9 Hypothyroidism, unspecified; T40.2X5A Adverse effect of other opioids, initial encounter; M96.1 Postlaminectomy syndrome, not elsewhere classified; E66.3 Overweight; E78.5 Hyperlipidemia, unspecified; Z88.2 Allergy status to sulfonamides; Z68.29 Body mass index [BMI] 29.0-29.9, adult; Z99.81 Dependence on supplemental oxygen; Z87.891 Personal history of nicotine dependence
CPT/HCPCS: 36415; 36600; 70450; 71010; 71020; 81001; 82040; 82247; 82310; 82374; 82435; 82565; 82803; 82947; 83605; 83880; 84075; 84132; 84155; 84295; 84450; 84460; 84484; 84520; 85025; 85610; 85730; 87040; 87088; 93005; 94640; 96360; 96361; 97161; 99285; J0456; J0696; J1650; J7030; J7040; J7050

== ENCOUNTER 2017-05-22 02:39 | Day surgery (SDC) | payer MEDICARE ==
[2017-03-29 14:28] VITALS: Ht 167.6 cm; Wt 79.8 kg
[~2017-05-22] VITALS: Ht 167.6 cm; Wt 79.8 kg
[~2017-05-22 02:39] MED LIST changes: +AZIT-1 PO; +GOLYTE PO; +IPRA3AMP21 IH; +LEVO112T44 PO; +PRED20TA6 PO
[2017-05-22] MEDS ORDERED: NORMOSOL R SOLN(*) 1000 ML BAG 1,000 ML IV PRN (06:30)
[2017-05-22] MEDS ORDERED: MIDAZOLAM 2 MG/2 ML VIAL IVP PRN (06:30)
[2017-05-22] MEDS ORDERED: LIDOCAINE/SOD BICARB 8.4% SYR ID ONE (06:30)
[2017-05-22 07:04] VITALS: BP 165/88
[2017-05-22 08:10] VITALS: BP 157/86
[2017-05-22] MEDS ORDERED: HYDR25SU51 RC (08:17)
[2017-05-22 08:19] VITALS: BP 154/90
--- NOTE | 2017-05-22 08:25 | Short(Outpt) Discharge Summary ---
Discharge Summary Reason for Hosp/Final Diag: (1) BRBPR (bright red blood per rectum) Status: Chronic Hospital Course & Plan: Colonoscopy with polypectomy x3 and colon biopsies completed without problems. Departure Discharge to: Home, Self Care Discharge Instructions Home Meds Active Scripts Hydrocortisone Acetate (ANUSOL-HC) 25 Mg Supp.rect, 1 SUPP.RECT RC BID, #30 SUPP.RECT 0 Refills Prov:SHEILA SPARKS MD 05/22/17 Peg/Electrolytes (GOLYTELY SOLUTION) 4,000 Ml Soln, 1 GAL PO ONCE, #1 GAL 0 Refills Prov:SHEILA SPARKS MD 04/05/17 Gabapentin (GABAPENTIN) 300 Mg Capsule, 3 TAB PO QAM, #630 CAPSULE 3 Refills TAKE 2 in am and 5 in pm Prov:DANNI STEWART MD 02/11/17 Oxybutynin Chloride (OXYBUTYNIN CHLORIDE) 5 Mg Tablet, 1 TAB PO QDAY, #90 TAB 3 Refills Prov:DANNI STEWART MD 02/11/17 Duloxetine HCl (Duloxetine HCl) 60 Mg Capsule.dr, 2 CAP PO DAILY, #180 TAB 3 Refills Prov:DANNI STEWART MD 02/11/17 Atorvastatin Calcium (ATORVASTATIN CALCIUM) 80 Mg Tablet, 1 TAB PO QDAY, #90 TAB 3 Refills Prov:DANNI STEWART MD 02/11/17 Metoprolol Succinate (METOPROLOL SUCCINATE) 100 Mg Tab.er.24h, 1 TAB PO QDAY, # 90 TAB 3 Refills Prov:DANNI STEWART MD 02/11/17 Allopurinol (Allopurinol) 300 Mg Tablet, 1 TAB PO DAILY, #90 TAB 3 Refills Prov:DANNI STEWART MD 02/11/17 Cyclobenzaprine Hcl (CYCLOBENZAPRINE HCL) 10 Mg Tablet, 1 TAB PO QHS, #90 TAB 3 Refills Prov:DANNI STEWART MD 02/11/17 [place]-3 (FISH OIL 500 MG SOFTGEL) 500 Mg Cap, 500 MG PO QDAY, #30 CAP Prov:CHRISTY BRANHAM MD 10/19/15 Cyclosporine (RESTASIS) 1 Each Droperette, 1 EACH OU BID, #1 BOT Prov:CHRISTY BRANHAM MD 10/19/15 Reported Medications Levothyroxine Sodium (SYNTHROID) 112 Mcg Tablet, 112 MCG PO QDAY, TAB 05/15/17 Losartan Potassium (LOSARTAN POTASSIUM) 100 Mg Tablet, 100 MG PO QDAY 05/15/17 Diphenhydramine Hcl (DIPHENHYDRAMINE HCL) 25 Mg Tablet, 25 MG PO PRN, TAB 02/11/17 Aspirin/Acetaminophen/Caffeine (EXCEDRIN EXTRA STRENGTH CAPLET) 1 Each Tablet, 1 EACH PO PRN 02/11/17 Multivits,Th W-Fe,Other Min (COMPLETE MULTIVITAMIN) 1 Each Tablet, 1 TAB PO DAILY 09/08/15 Vitamin B Complex (VITAMIN B COMPLEX) 1 Each Capsule, 1 EACH PO QDAY, CAPSULE 12/24/13 [Oxygen ] No Conflict Check, 2-3 L NA DAILY ON CONTINUOUSLY 08/26/13 Oxycodone Hcl/Acetaminophen (PERCOCET 10-325 MG TABLET) 1 Each Tablet, 1 EACH PO QID Y for PAIN q 4 hr as needed for pain 08/23/13 Morphine Sulfate (MS CONTIN) 15 Mg Tablet.er, 15 MG PO QID 08/23/13 Discontinued Reported Medications Azithromycin (ZITHROMAX) 250 Mg Tablet, 2 TAB PO DAILY, TAB 03/30/17 Follow up Referrals: General Surgery - 06/05/17 @ Surgery, General with Sheila Sparks Md You have a follow up appointment scheduled with Dr. Sparks on 06/05/17, at 2: 30pm. Diet: Regular Activity: As Tolerated Special Instructions: Your colonoscopy was completed without problems and your prep was excellent (Good Job!!). I removed 3 small polyps from your colon and took some biopsies of 2 areas of mild inflammation, including right inside your anus. I didn't see any significant hemorrhoids but I think the blood you're seeing is from the inflamed area. I have given you a prescription for steroid suppositories and I would like you to insert 1 suppository into your rectum twice each day until you run out of suppositories (2 weeks). I will see you back in my office and will see how you're doing after 2 weeks of suppositories. SHEILA SPARKS MD May 22, 2017 08:25
[2017-05-22 08:43] VITALS: BP 155/83
[2017-05-22 09:19] VITALS: BP 165/82
[2017-05-22 09:23] VITALS: BP 176/99
== END 2017-05-22 09:55 | disposition home health service (06) ==
LOC: OR 02:39
PROVIDERS: ATTEND Surgery
DX: K62.5 Hemorrhage of anus and rectum (principal); D12.0 Benign neoplasm of cecum; D12.3 Benign neoplasm of transverse colon; K52.9 Noninfective gastroenteritis and colitis, unspecified; K62.89 Other specified diseases of anus and rectum
CPT/HCPCS: 88305

== ENCOUNTER → 2017-07-11 | Outpatient (CLI) | payer MEDICARE ==
[2017-03-29 14:28] VITALS: BMI 29.4
[~2017-07-11] MED LIST changes: +CLOB15OI16 TP; +HYDR25SU51 RC; +HYDR30CR10 TP
== END ==
LOC: LAB 15:50
PROVIDERS: ATTEND Emergency Medicine
DX: E03.9 Hypothyroidism, unspecified (principal)
CPT/HCPCS: 36415; 84443

== ENCOUNTER → 2017-07-22 | Outpatient (CLI) | payer MEDICARE ==
[2017-03-29 14:28] VITALS: BMI 29.4
[~2017-07-22] MED LIST changes: +FENO130C PO
== END ==
LOC: LAB 12:11
PROVIDERS: ATTEND Emergency Medicine
DX: E78.2 Mixed hyperlipidemia (principal); R73.03 Prediabetes; E55.9 Vitamin D deficiency, unspecified
CPT/HCPCS: 36415; 82306; 82465; 83036; 83718; 84478

== ENCOUNTER 2017-08-26 20:20 | Emergency (ER) | payer MEDICARE ==
[2017-03-29 14:28] VITALS: Wt 77.1 kg
[~2017-08-26 20:20] MED LIST changes: +FENO134C5 PO; +[UNRECOGNIZED DRUG - CODE] PO
--- NOTE | 2017-08-26 20:35 | ER Report ---
History and Physical Time Seen By MD: 20:34 Hx. of Stated Complaint: pt reports pain in her back and legs for ~4-5 days HPI/ROS CHIEF COMPLAINT: Back and leg pain HISTORY OF PRESENT ILLNESS: 71-year-old female with chronic low back pain. Now presents with worsening low back pain and leg pain after starting a new medication,Fenofibrate, approximately 2 weeks ago. Patient notes no dysuria, frequency or hematuria. She denies fever or chills. She notes some clear rhinitis. She's had no nausea, vomiting. She denies chest pain or shortness of breath. Although she seems to be in moderate distress with an increased respiratory rate and grunting. REVIEW OF SYSTEMS: Respiratory: No cough, no dyspnea. Cardiovascular: No chest pain, no palpitations. Gastrointestinal: No vomiting, no abdominal pain. Musculoskeletal: As above Allergies: Coded Allergies: Sulfa (Sulfonamide Antibiotics) (Verified Allergy, Mild, SWELLING, 08/26/17 ) Home Meds Active Scripts Fenofibrate,Micronized (FENOFIBRATE) 134 Mg Capsule, 134 MG PO QDAY, #30 CAPSULE 11 Refills Prov:DANNI STEWART MD 08/14/17 Levothyroxine Sodium (SYNTHROID) 112 Mcg Tablet, 112 MCG PO QDAY, #90 TAB 3 Refills Prov:DANNI STEWART MD 07/12/17 Hydrocortisone 2.5 % 30 GM CREAM (Hydrocortisone 2.5 % 30 GM CREAM) 2.5 % Cream.appl, 1 MARK TP BID for 30 Days, #1 TUBE 1 Refill Apply to face only. Prov:MAT VALENZUELA 07/11/17 Clobetasol Propionate (CLOBETASOL PROPIONATE) 15 Gm Oint...g., 1 MARK TP BID for 30 Days, #1 TUBE 1 Refill Apply twice a day to hands and legs only. Prov:MAT VALENZUELA 07/11/17 Hydrocortisone Acetate (ANUSOL-HC) 25 Mg Supp.rect, 1 SUPP.RECT RC BID, #30 SUPP.RECT 0 Refills Prov:SHEILA SPARKS MD 05/22/17 Gabapentin (GABAPENTIN) 300 Mg Capsule, 3 TAB PO QAM, #630 CAPSULE 3 Refills TAKE 2 in am and 5 in pm Prov:DANNI STEWART MD 02/11/17 Oxybutynin Chloride (OXYBUTYNIN CHLORIDE) 5 Mg Tablet, 1 TAB PO QDAY, #90 TAB 3 Refills Prov:DANNI STEWART MD 02/11/17 Duloxetine HCl (Duloxetine HCl) 60 Mg Capsule.dr, 2 CAP PO DAILY, #180 TAB 3 Refills Prov:DANNI STEWART MD 02/11/17 Atorvastatin Calcium (ATORVASTATIN CALCIUM) 80 Mg Tablet, 1 TAB PO QDAY, #90 TAB 3 Refills Prov:DANNI STEWART MD 02/11/17 Metoprolol Succinate (METOPROLOL SUCCINATE) 100 Mg Tab.er.24h, 1 TAB PO QDAY, # 90 TAB 3 Refills Prov:DANNI STEWART MD 02/11/17 Allopurinol (Allopurinol) 300 Mg Tablet, 1 TAB PO DAILY, #90 TAB 3 Refills Prov:DANNI STEWART MD 02/11/17 Cyclobenzaprine Hcl (CYCLOBENZAPRINE HCL) 10 Mg Tablet, 1 TAB PO QHS, #90 TAB 3 Refills Prov:DANNI STEWART MD 02/11/17 [place]-3 (FISH OIL 500 MG SOFTGEL) 500 Mg Cap, 500 MG PO QDAY, #30 CAP Prov:CHRISTY BRANHAM MD 10/19/15 Cyclosporine (RESTASIS) 1 Each Droperette, 1 EACH OU BID, #1 BOT Prov:CHRISTY BRANHAM MD 10/19/15 Reported Medications Losartan Potassium (LOSARTAN POTASSIUM) 100 Mg Tablet, 100 MG PO QDAY 05/15/17 Diphenhydramine Hcl (DIPHENHYDRAMINE HCL) 25 Mg Tablet, 25 MG PO PRN, TAB 02/11/17 Aspirin/Acetaminophen/Caffeine (EXCEDRIN EXTRA STRENGTH CAPLET) 1 Each Tablet, 1 EACH PO PRN 02/11/17 Multivits,Th W-Fe,Other Min (COMPLETE MULTIVITAMIN) 1 Each Tablet, 1 TAB PO DAILY 09/08/15 Vitamin B Complex (VITAMIN B COMPLEX) 1 Each Capsule, 1 EACH PO QDAY, CAPSULE 12/24/13 [Oxygen ] No Conflict Check, 2-3 L NA DAILY ON CONTINUOUSLY 08/26/13 Oxycodone Hcl/Acetaminophen (PERCOCET 10-325 MG TABLET) 1 Each Tablet, 1 EACH PO QID Y for PAIN q 4 hr as needed for pain 08/23/13 Morphine Sulfate (MS CONTIN) 15 Mg Tablet.er, 15 MG PO QID 08/23/13 Reviewed Nurses Notes: Yes Old Medical Records Reviewed: Yes Hx Smoking: No Smoking Status: Former Smoker Exposure to Second Hand Smoke?: No Hx Substance Use Disorder: No Hx Alcohol Use: No Constitutional Vital Sign - Last 24 Hours 08/26/17 08/26/17 08/26/17 08/26/17 20:26 20:32 20:35 20:40 Temp 97.8 Pulse 102 93 98 Resp 16 B/P (MAP) 187/95 187/95 (125) Pulse Ox 94 97 97 O2 Delivery Room Air 08/26/17 08/26/17 08/26/17 08/26/17 20:45 20:55 21:00 21:05 Pulse 89 90 91 Pulse Ox 95 95 94 94 08/26/17 08/26/17 08/26/17 08/26/17 21:10 21:15 21:20 21:30 Pulse 89 89 82 B/P (MAP) 153/97 (115) Pulse Ox 94 93 94 08/26/17 08/26/17 08/26/17 08/26/17 21:35 21:40 21:45 22:00 Pulse 86 80 84 81 B/P (MAP) ???/??? (1665) Pulse Ox 96 91 91 94 08/26/17 08/26/17 08/26/17 22:05 22:20 22:35 Pulse ??? 92 ??? Pulse Ox 94 94 94 Physical Exam Vital signs stable, afebrile, pulse ox normal General Appearance: The patient is alert, has no immediate need for airway protection and no current signs of toxicity. Mild distress HEENT: Pupils equal and round no injection. Oropharynx without redness or exudate, mucous members are moist Respiratory: Chest is non tender, lungs are clear to auscultation. Cardiac: regular rate and rhythm Gastrointestinal: Abdomen is soft and non tender, no masses, bowel sounds normal. Musculoskeletal: Neck: Neck is supple and non tender. Back: There is tenderness in the paraspinous muscles. Extremities have full range of motion and are non tender. Tenderness on palpation of all muscle groups Skin: No rashes or lesions. DIFFERENTIAL DIAGNOSIS: After history and physical exam differential diagnosis was considered for back pain including but not limited to muscular pain, herniated disc, spine fracture, intra-abdominal causes and urinary tract infection. Medical Decision Making Data Points Result Diagram: 08/26/17214908/26/172149 Laboratory Hematology Test 08/26/17 21:50 Red Blood Count 5.11 M/uL (4.17-5.56) Mean Corpuscular Volume 96.0 fL (80.0-96.0) Mean Corpuscular Hemoglobin 32.7 pg (26.0-33.0) Mean Corpuscular Hemoglobin Concent 34.1 g/dL (32.0-36.0) Red Cell Distribution Width 14.5 % (11.5-14.5) Mean Platelet Volume 7.5 fL (7.2-11.1) Neutrophils (%) (Auto) 82.4 % (39.4-72.5) Lymphocytes (%) (Auto) 9.2 % (17.6-49.6) Monocytes (%) (Auto) 7.6 % (4.1-12.4) Eosinophils (%) (Auto) 0.1 % (0.4-6.7) Basophils (%) (Auto) 0.7 % (0.3-1.4) Nucleated RBC Relative Count (auto) 0.1 /100WBC Neutrophils # (Auto) 10.6 K/uL (2.0-7.4) Lymphocytes # (Auto) 1.2 K/uL (1.3-3.6) Monocytes # (Auto) 1.0 K/uL (0.3-1.0) Eosinophils # (Auto) 0.0 K/uL (0.0-0.5) Basophils # (Auto) 0.1 K/uL (0.0-0.1) Nucleated RBC Absolute Count (auto) 0.02 K/uL Erythrocyte Sedimentation Rate 10 mm/HOUR (0-30) Sodium Level 140 mmol/L (137-145) Potassium Level 2.8 mmol/L (3.5-5.0) Chloride Level 98 mmol/L (98-107) Carbon Dioxide Level 23 mmol/L (22-31) Blood Urea Nitrogen 16 mg/dl (7-18) Creatinine 0.70 mg/dl (0.52-1.04) Glomerular Filtration Rate Calc > 60.0 Random Glucose 132 mg/dl (75-110) Calcium Level 10.3 mg/dl (8.4-10.2) Total Bilirubin 1.2 mg/dl (0.2-1.3) Aspartate Amino Transf (AST/SGOT) 65 U/L (0-35) Alanine Aminotransferase (ALT/SGPT) 27 U/L (0-56) Alkaline Phosphatase 105 U/L (0-126) Total Creatine Kinase 874 U/L (30-135) Troponin I < 0.012 ng/ml C-Reactive Protein < 0.5 mg/dl (<1.0) Total Protein 7.8 gm/dl (6.3-8.2) Albumin 4.5 g/dl (3.5-5.0) Chemistry Test 08/26/17 21:50 White Blood Count 12.8 k/uL (4.5-11.0) Red Blood Count 5.11 M/uL (4.17-5.56) Hemoglobin 16.7 g/dL (12.0-16.0) Hematocrit 49.1 % (34.0-47.0) Mean Corpuscular Volume 96.0 fL (80.0-96.0) Mean Corpuscular Hemoglobin 32.7 pg (26.0-33.0) Mean Corpuscular Hemoglobin Concent 34.1 g/dL (32.0-36.0) Red Cell Distribution Width 14.5 % (11.5-14.5) Platelet Count 318 K/uL (150-450) Mean Platelet Volume 7.5 fL (7.2-11.1) Neutrophils (%) (Auto) 82.4 % (39.4-72.5) Lymphocytes (%) (Auto) 9.2 % (17.6-49.6) Monocytes (%) (Auto) 7.6 % (4.1-12.4) Eosinophils (%) (Auto) 0.1 % (0.4-6.7) Basophils (%) (Auto) 0.7 % (0.3-1.4) Nucleated RBC Relative Count (auto) 0.1 /100WBC Neutrophils # (Auto) 10.6 K/uL (2.0-7.4) Lymphocytes # (Auto) 1.2 K/uL (1.3-3.6) Monocytes # (Auto) 1.0 K/uL (0.3-1.0) Eosinophils # (Auto) 0.0 K/uL (0.0-0.5) Basophils # (Auto) 0.1 K/uL (0.0-0.1) Nucleated RBC Absolute Count (auto) 0.02 K/uL Erythrocyte Sedimentation Rate 10 mm/HOUR (0-30) Glomerular Filtration Rate Calc > 60.0 Calcium Level 10.3 mg/dl (8.4-10.2) Total Bilirubin 1.2 mg/dl (0.2-1.3) Aspartate Amino Transf (AST/SGOT) 65 U/L (0-35) Alanine Aminotransferase (ALT/SGPT) 27 U/L (0-56) Alkaline Phosphatase 105 U/L (0-126) Total Creatine Kinase 874 U/L (30-135) Troponin I < 0.012 ng/ml C-Reactive Protein < 0.5 mg/dl (<1.0) Total Protein 7.8 gm/dl (6.3-8.2) Albumin 4.5 g/dl (3.5-5.0) EKG/Imaging EKG Interpretation 12 lead EK Rhythm: normal sinus rhythm Jackson: Rightward axis QRS: normal ST segments: Nonspecific T wave abnormality, comparison to previous EKG 02/15 appears very similar to this old one, comparison to 03/28/[address] and T-wave changes, today's EKG shows prolonged QT 532 ms ED Course/Re-evaluation Clinical Indication for ER IV: Hydration, IV Access ED Course Patient was admitted to an examination room. H&P was done. The differential diagnoses was considered. On clinical examination. Patient has muscle tenderness. She has chronic back pain. It's worse than usual. She's medicated with Zofran and fentanyl. She is also given a liter of saline. He came returns at 874. I think that the Fenofibrate is causing muscle inflammation. She is advised to discontinue her medication. Follow-up with her primary care physician this next week. Decision to Disposition Date: August 26, 2017 Decision to Disposition Time: 22:27 Depart Departure Latest Vital Signs Vital Signs Date Time Temp Pulse Resp B/P (MAP) Pulse Ox O2 Delivery O2 Flow Rate FiO2 08/26/17 22:35 ??? 94 08/26/17 22:00 ???/??? (9916) 08/26/17 20:26 97.8 16 Room Air Impression: Primary Impression: Adverse reaction to antihyperlipidemic drug Additional Impressions: Myalgia and myositis Chronic back pain Hypokalemia Condition: Improved Disposition: HOME OR SELF-CARE Referrals: DANNI STEWART MD (PCP) Patient Instructions: Adverse Drug Reaction (ED) Additional Instructions: Stop taking Fenofibrate Follow-up with your primary doctor later this week Problem Qualifiers Primary Impression: Adverse reaction to antihyperlipidemic drug Encounter type: initial encounter Qualified Codes: T46.6X5A - Adverse effect of antihyperlipidemic and antiarteriosclerotic drugs, initial encounter Additional Impressions: Chronic back pain Back pain location: low back pain Back pain laterality: unspecified Sciatica presence: unspecified whether sciatica present Qualified Codes: M54.5 - Low back pain; G89.29 - Other chronic pain ADELITA FRAZIER DO August 26, 2017 20:35
[2017-08-26] MEDS ORDERED: fentaNYL CITR 100 MCG/2 ML AMP IVP ONE (20:40)
[2017-08-26] MEDS ORDERED: NS(*) 0.9% 1000 ML BAG 1,000 ML IV ONE (20:40)
[2017-08-26] MEDS ORDERED: ONDANSETRON 4 MG/2 ML VIAL IVP ONE (20:40)
--- NOTE | 2017-08-26 21:37 | EKG ---
FACILITY: [facility] - [place] PATIENT NAME: JENNIFER SADLER : [id number] MR: [id number] V: [id number] EXAM DATE: ORDERING PHYSICIAN: ADELITA FRAZIER TECHNOLOGIST: MEGHANA Test Reason : BACK PAIN Blood Pressure : / mmHG Vent. Rate : 093 BPM Atrial Rate : 093 BPM P-R Int : 150 ms QRS Dur : 084 ms QT Int : 428 ms P-R-T Axes : 038 092 026 degrees QTc Int : 532 ms Normal sinus rhythm Nonspecific ST abnormality Prolonged QT Abnormal ECG Confirmed by CHRISTY MENA ([id number]) on 08/27/2017 6:31:57 AM Referred By: Confirmed By:CHRISTY MENA
[2017-08-26 22:13] LABS: PLATELET COUNT, AUTOMATED 318 K/uL (150-450)
== END 2017-08-26 22:42 | disposition home or self-care (01) ==
LOC: ER 20:56
DX: T46.6X5A Adverse effect of antihyperlipidemic and antiarteriosclerotic drugs, initial encounter (principal); M54.5 Low back pain; M60.9 Myositis, unspecified; E87.6 Hypokalemia
CPT/HCPCS: 36415; 82550; 84484; 85025; 85651; 86140; 93005; 96361; 96374; 96375; 99284; J2405; J3010; J7030; 82040; 82247; 82310; 82374; 82435; 82565; 82947; 84075; 84132; 84155; 84295; 84450; 84460; 84520

== ENCOUNTER → 2018-07-22 | Outpatient (CLI) | payer MEDICARE ==
[2017-03-29 14:28] VITALS: BMI 29.4
[~2018-07-22] MED LIST changes: +AMLO-125 PO; -AMLO-96 PO; +IPRA3AMP10 IH; -IPRA3AMP21 IH; -LOSA100T67 PO; +LOSA100T75 PO
[2018-07-22 12:06] LABS: PLATELET COUNT, AUTOMATED 349 K/uL (150-450)
== END ==
LOC: LAB 11:39
PROVIDERS: ATTEND Emergency Medicine
DX: E87.6 Hypokalemia (principal); R73.03 Prediabetes; I10 Essential (primary) hypertension; E78.2 Mixed hyperlipidemia; E03.9 Hypothyroidism, unspecified
CPT/HCPCS: 36415; 82040; 82247; 82310; 82374; 82435; 82465; 82565; 82947; 83036; 83718; 84075; 84132; 84155; 84295; 84443; 84450; 84460; 84478; 84520; 85025

== ENCOUNTER → 2018-07-24 | Outpatient (CLI) | payer MEDICARE ==
[2017-03-29 14:28] VITALS: BMI 29.4
== END ==
LOC: LAB 14:45
PROVIDERS: ATTEND Obstetrics & Gynecology
DX: S31.104A Unspecified open wound of abdominal wall, left lower quadrant without penetration into peritoneal cavity, initial encounter (principal); B96.89 Other specified bacterial agents as the cause of diseases classified elsewhere
CPT/HCPCS: 87070; 87077; 87186

== ENCOUNTER 2018-08-17 15:47 | Inpatient (IN) | payer MEDICARE ==
[2017-03-29 14:28] VITALS: Ht 162.6 cm; Wt 84.4 kg
[~2018-08-17] VITALS: Ht 162.6 cm; Wt 84.4 kg
[~2018-08-17 15:47] MED LIST changes: +ASPI81TA94 PO; +CEFT1VIA63 IJ; +CEPH500T7 PO; +CHOL400C10 PO; +CYAN500T38 PO; +DOCU-202 PO; +GLUC-135 PO; +LORA-629 PO; +TALC71PO2 TP; +TRIA15CR40 TP
--- NOTE | 2018-08-17 15:59 | ER Report ---
History and Physical Time Seen By MD: 15:54 HPI/ROS CHIEF COMPLAINT: [] HISTORY OF PRESENT ILLNESS: [must have 4 elements] REVIEW OF SYSTEMS: Constitutional: [No fever, no chills.] Eyes: [No discharge.] ENT: [No sore throat.] Cardiovascular: [No chest pain, no palpitations.] Respiratory: [No cough, no shortness of breath.] Gastrointestinal: [No abdominal pain, no vomiting.] Genitourinary: [No hematuria.] Musculoskeletal: [No back pain.] Skin: [No rashes.] Neurological: [No headache.] Allergies: Coded Allergies: Sulfa (Sulfonamide Antibiotics) (Verified Allergy, Mild, SWELLING, 08/26/17) Home Meds Active Scripts Cephalexin 500 Mg Tab (KEFLEX 500 MG TAB) 500 Mg Tablet, 1 TAB PO BID for 7 Days, #14 TAB 0 Refills Prov:MAT VALENZUELA 08/07/18 Talc/Cellulos/Chloroxy/Aldioxa (ZEASORB POWDER) 71 Gm Powder, 1 MARK TP BID for 30 Days, #1 BOTTLE 2 Refills Apply powder over triamcinolone cream twice daily to areas under breast and groin creases. Prov:MAT VALENZUELA 08/07/18 Triamcinolone Acetonide 0.1% Cr 15 Gm Tube (TRIAMCINOLONE ACETONIDE 0.1% CREAM) 15 Gm Cream..g., 1 MARK TP BID for 30 Days, #30 TUBE 1 Refill Apply small amount twice daily under breast and groin creases followed by Zeasorb powder. Prov:MAT VALENZUELA 08/07/18 Clobetasol Propionate (CLOBETASOL PROPIONATE) 15 Gm Oint...g., 1 MARK TP BID for 30 Days, #30 TUBE 1 Refill Apply twice a day to legs only as needed to control scale. Do not use on face, neck, underarms or groin. Prov:MAT VALENZUELA 08/07/18 Fluconazole (DIFLUCAN) 150 Mg Tablet, 150 MG PO QDAY, #1 TAB Prov:JO CALDERA DO 07/30/18 Losartan Potassium (LOSARTAN POTASSIUM) 100 Mg Tablet, 100 MG PO QDAY, #30 TAB 0 Refills Prov:DANNI STEWART MD 07/08/18 Oxybutynin Chloride (OXYBUTYNIN CHLORIDE) 5 Mg Tablet, 1 TAB PO QDAY, #90 TAB 3 Refills Prov:DANNI STEWART MD 03/27/18 Fenofibrate,Micronized (FENOFIBRATE) 134 Mg Capsule, 134 MG PO QDAY, #30 CAPSULE 11 Refills Prov:DANNI STEWART MD 08/14/17 Levothyroxine Sodium (SYNTHROID) 112 Mcg Tablet, 112 MCG PO QDAY, #90 TAB 3 Refills Prov:DANNI STEWART MD 07/12/17 Hydrocortisone 2.5 % 30 GM CREAM (Hydrocortisone 2.5 % 30 GM CREAM) 2.5 % Cream.appl, 1 MARK TP BID for 30 Days, #1 TUBE 1 Refill Apply to face only. Prov:MAT VALENZUELA 07/11/17 Hydrocortisone Acetate (ANUSOL-HC) 25 Mg Supp.rect, 1 SUPP.RECT RC BID, #30 SUPP.RECT 0 Refills Prov:SHEILA SPARKS MD 05/22/17 Gabapentin (GABAPENTIN) 300 Mg Capsule, 3 TAB PO QAM, #630 CAPSULE 3 Refills TAKE 2 in am and 5 in pm Prov:DANNI STEWART MD 02/11/17 Duloxetine HCl (Duloxetine HCl) 60 Mg Capsule.dr, 2 CAP PO DAILY, #180 TAB 3 Refills Prov:DANNI STEWART MD 02/11/17 Metoprolol Succinate (METOPROLOL SUCCINATE) 100 Mg Tab.er.24h, 1 TAB PO QDAY, #90 TAB 3 Refills Prov:DANNI STEWART MD 02/11/17 Allopurinol (Allopurinol) 300 Mg Tablet, 1 TAB PO DAILY, #90 TAB 3 Refills Prov:DANNI STEWART MD 02/11/17 Cyclobenzaprine Hcl (CYCLOBENZAPRINE HCL) 10 Mg Tablet, 1 TAB PO QHS, #90 TAB 3 Refills Prov:DANNI STEWART MD 02/11/17 [place]-3 (FISH OIL 500 MG SOFTGEL) 500 Mg Cap, 500 MG PO QDAY, #30 CAP Prov:CHRISTY BRANHAM MD 10/19/15 Cyclosporine (RESTASIS) 1 Each Droperette, 1 EACH OU BID, #1 BOT Prov:CHRISTY BRANHAM MD 10/19/15 Reported Medications Docusate Sodium (DOCUSATE SODIUM) 100 Mg Capsule, 100 MG PO DAILY, CAPSULE 08/04/18 Cyanocobalamin (Vitamin B-12) (VITAMIN B-12) 500 Mcg Tablet, 500 MCG PO DAILY 08/04/18 Cholecalciferol (Vitamin D3) (VITAMIN D) 400 Unit Capsule, 125 MCG PO DAILY, CAPSULE 08/04/18 Loratadine (LORATADINE) 10 Mg Tablet, 10 MG PO DAILY 08/04/18 Aspirin (ASPIRIN) 81 Mg Tab.chew, 81 MG PO QDAY, TAB.CHEW 08/04/18 Gluc Regalado/Chondro Regalado A/Vit C/Mn (GLUCOSAMINE CHONDROITIN TAB) 1 Each Tablet, 1 EACH PO BID 08/04/18 Diphenhydramine Hcl (DIPHENHYDRAMINE HCL) 25 Mg Tablet, 25 MG PO PRN, TAB 02/11/17 Aspirin/Acetaminophen/Caffeine (EXCEDRIN EXTRA STRENGTH CAPLET) 1 Each Tablet, 1 EACH PO PRN 02/11/17 Multivits,Th W-Fe,Other Min (COMPLETE MULTIVITAMIN) 1 Each Tablet, 1 TAB PO DAILY 09/08/15 [Oxygen ] No Conflict Check, 2-3 L NA DAILY ON CONTINUOUSLY 08/26/13 Oxycodone Hcl/Acetaminophen (PERCOCET 10-325 MG TABLET) 1 Each Tablet, 1 EACH PO QID PRN for PAIN q 4 hr as needed for pain 08/23/13 Morphine Sulfate (MS CONTIN) 15 Mg Tablet.er, 15 MG PO QID 08/23/13 Hx Smoking: No Smoking Status: Former Smoker Exposure to Second Hand Smoke?: No Hx Substance Use Disorder: No Hx Alcohol Use: No Physical Exam General Appearance: [The patient is alert, has no immediate need for airway protection and no signs of toxicity.] [ ] [Eyes:] [Pupils equal and round no pallor or injection.] [ENT, Mouth:] [Mucous membranes are moist.] Respiratory: [There are no retractions, lungs are clear to auscultation.] Cardiovascular: [Regular rate and rhythm.] [ ] Gastrointestinal: [Abdomen is soft and non tender, no masses, bowel sounds normal.] [Neurological:] [ ] [Skin:] [Warm and dry, no rashes.] [Musculoskeletal:] [Neck is supple non tender.] [Extremities are nontender, nonswollen and have full range of motion.] [ ] [DIFFERENTIAL DIAGNOSIS: After history and physical exam differential diagnosis was considered for] [ ] Medical Decision Making ED Course/Re-evaluation Clinical Indication for ER IV: IV Access Depart Departure Condition: Stable Disposition: HOME OR SELF-CARE Referrals: DANNI STEWART MD (PCP) GINA WEBBERP-LG August 17, 2018 15:59
--- NOTE | 2018-08-17 16:04 | ER Report ---
History and Physical Time Seen By MD: 15:54 (MARK HARLEY DO) HPI/ROS CHIEF COMPLAINT: altered mental status HISTORY OF PRESENT ILLNESS: PT here with her grand daughter. Pt states she feels fine. Grand daughter states she got a call from her father that her grandmother was walking around the house and was confused. HE did find her MScontin pills were spilled on the floor and pt was not on her oxygen. This call occurred at noon today.Granddaughter told her to put her back on her oxygen and have her sit in a chair. GEOSPATIAL TECHNOLOGIST granddaughter came to visit and still feels she is confused. Pt is moving all extremities but seems to have trouble finding words. Grand daughter is concerned that it could be a medication/oxygen issue or could be something else so brought her here. PT hereself is a poor historian and seems confused. PTs oxygenation is in low 60s on room air which is how she arrived. PT placed on oxygen on her arrival. REVIEW OF SYSTEMS: Constitutional: No fever, no chills. Eyes: No discharge. ENT: No sore throat. Cardiovascular: No chest pain, no palpitations. Respiratory: No cough, no shortness of breath. Gastrointestinal: No abdominal pain, no vomiting. Genitourinary: No hematuria. Musculoskeletal: No back pain. Skin: No rashes. Neurological: No headache, Trouble finding words? (MARK HARLEY DO) Allergies: Coded Allergies: Sulfa (Sulfonamide Antibiotics) (Verified Allergy, Mild, SWELLING, 08/26/17) Home Meds Active Scripts Cephalexin 500 Mg Tab (KEFLEX 500 MG TAB) 500 Mg Tablet, 1 TAB PO BID for 7 Days, #14 TAB 0 Refills Prov:MAT VALENZUELA NPC 08/07/18 Talc/Cellulos/Chloroxy/Aldioxa (ZEASORB POWDER) 71 Gm Powder, 1 MARK TP BID for 30 Days, #1 BOTTLE 2 Refills Apply powder over triamcinolone cream twice daily to areas under breast and groin creases. Prov:MAT VALENZUELA NPC 08/07/18 Triamcinolone Acetonide 0.1% Cr 15 Gm Tube (TRIAMCINOLONE ACETONIDE 0.1% CREAM) 15 Gm Cream..g., 1 MARK TP BID for 30 Days, #30 TUBE 1 Refill Apply small amount twice daily under breast and groin creases followed by Zeasorb powder. Prov:MAT VALENZUELA 08/07/18 Clobetasol Propionate (CLOBETASOL PROPIONATE) 15 Gm Oint...g., 1 MARK TP BID for 30 Days, #30 TUBE 1 Refill Apply twice a day to legs only as needed to control scale. Do not use on face, neck, underarms or groin. Prov:MAT VALENZUELA 08/07/18 Fluconazole (DIFLUCAN) 150 Mg Tablet, 150 MG PO QDAY, #1 TAB Prov:JO CALDERA DO 07/30/18 Losartan Potassium (LOSARTAN POTASSIUM) 100 Mg Tablet, 100 MG PO QDAY, #30 TAB 0 Refills Prov:DANNI STEWART MD 07/08/18 Oxybutynin Chloride (OXYBUTYNIN CHLORIDE) 5 Mg Tablet, 1 TAB PO QDAY, #90 TAB 3 Refills Prov:DANNI STEWART MD 03/27/18 Fenofibrate,Micronized (FENOFIBRATE) 134 Mg Capsule, 134 MG PO QDAY, #30 CAPSULE 11 Refills Prov:DANNI STEWART MD 08/14/17 Levothyroxine Sodium (SYNTHROID) 112 Mcg Tablet, 112 MCG PO QDAY, #90 TAB 3 Refills Prov:DANNI STEWART MD 07/12/17 Hydrocortisone 2.5 % 30 GM CREAM (Hydrocortisone 2.5 % 30 GM CREAM) 2.5 % Cream.appl, 1 MARK TP BID for 30 Days, #1 TUBE 1 Refill Apply to face only. Prov:MAT VALENZUELA 07/11/17 Hydrocortisone Acetate (ANUSOL-HC) 25 Mg Supp.rect, 1 SUPP.RECT RC BID, #30 SUPP.RECT 0 Refills Prov:SHEILA SPARKS MD 05/22/17 Gabapentin (GABAPENTIN) 300 Mg Capsule, 3 TAB PO QAM, #630 CAPSULE 3 Refills TAKE 2 in am and 5 in pm Prov:DANNI STEWART MD 02/11/17 Duloxetine HCl (Duloxetine HCl) 60 Mg Capsule.dr, 2 CAP PO DAILY, #180 TAB 3 Refills Prov:DANNI STEWART MD 02/11/17 Metoprolol Succinate (METOPROLOL SUCCINATE) 100 Mg Tab.er.24h, 1 TAB PO QDAY, #90 TAB 3 Refills Prov:DANNI STEWART MD 02/11/17 Allopurinol (Allopurinol) 300 Mg Tablet, 1 TAB PO DAILY, #90 TAB 3 Refills Prov:DANNI STEWART MD 02/11/17 Cyclobenzaprine Hcl (CYCLOBENZAPRINE HCL) 10 Mg Tablet, 1 TAB PO QHS, #90 TAB 3 Refills Prov:DANNI STEWART MD 02/11/17 [place]-3 (FISH OIL 500 MG SOFTGEL) 500 Mg Cap, 500 MG PO QDAY, #30 CAP Prov:CHRISTY ARAUJO MD 10/19/15 Cyclosporine (RESTASIS) 1 Each Droperette, 1 EACH OU BID, #1 BOT Prov:CHRISTY ARAUJO MD 10/19/15 Reported Medications Docusate Sodium (DOCUSATE SODIUM) 100 Mg Capsule, 100 MG PO DAILY, CAPSULE 08/04/18 Cyanocobalamin (Vitamin B-12) (VITAMIN B-12) 500 Mcg Tablet, 500 MCG PO DAILY 08/04/18 Cholecalciferol (Vitamin D3) (VITAMIN D) 400 Unit Capsule, 125 MCG PO DAILY, CAPSULE 08/04/18 Loratadine (LORATADINE) 10 Mg Tablet, 10 MG PO DAILY 08/04/18 Aspirin (ASPIRIN) 81 Mg Tab.chew, 81 MG PO QDAY, TAB.CHEW 08/04/18 Gluc Regalado/Chondro Regalado A/Vit C/Mn (GLUCOSAMINE CHONDROITIN TAB) 1 Each Tablet, 1 EACH PO BID 08/04/18 Diphenhydramine Hcl (DIPHENHYDRAMINE HCL) 25 Mg Tablet, 25 MG PO PRN, TAB 02/11/17 Aspirin/Acetaminophen/Caffeine (EXCEDRIN EXTRA STRENGTH CAPLET) 1 Each Tablet, 1 EACH PO PRN 02/11/17 Multivits,Th W-Fe,Other Min (COMPLETE MULTIVITAMIN) 1 Each Tablet, 1 TAB PO DAILY 09/08/15 [Oxygen ] No Conflict Check, 2-3 L NA DAILY ON CONTINUOUSLY 08/26/13 Oxycodone Hcl/Acetaminophen (PERCOCET 10-325 MG TABLET) 1 Each Tablet, 1 EACH PO QID PRN for PAIN q 4 hr as needed for pain 08/23/13 Morphine Sulfate (MS CONTIN) 15 Mg Tablet.er, 15 MG PO QID 08/23/13 Past Medical/Surgical History Pmhx: hyperlipid, htn, kidney stone, C6 x, hypothyroid Pshx: Tonsilectomy, Hyster, carpal tunnel (MARK HARLEY DO) Reviewed Nurses Notes: Yes Old Medical Records Reviewed: Yes (MARK HARLEY DO) Hx Smoking: No Smoking Status: Former Smoker Exposure to Second Hand Smoke?: No Hx Substance Use Disorder: No Hx Alcohol Use: No (MARK HARLEY DO) Constitutional Vital Sign - Last 24 Hours 08/17/18 08/17/18 08/17/18 08/17/18 15:47 16:00 16:03 16:07 Temp 99.0 Pulse ??? 70 ??? B/P (MAP) 94/54 (67) 94/54 Pulse Ox 59 90 O2 Delivery Room Air 08/17/18 08/17/18 08/17/18 08/17/18 16:12 16:27 16:42 16:47 Pulse 85 63 B/P (MAP) 92/80 (84) Pulse Ox 59 90 O2 Flow Rate 3.0 08/17/18 08/17/18 17:07 17:27 Pulse 61 60 Pulse Ox 88 86 ([facility]) Physical Exam General Appearance: The patient is alert, has no immediate need for airway protection and no signs of toxicity. Eyes: Pupils equal and round no pallor or injection, EOMI ENT: no pharyngeal erythema or exudates, Mucous membranes are moist, TM are nl b/l Respiratory: There are no retractions, lungs are clear to auscultation. Cardiovascular: Regular rate and rhythm. pulses are equal and symmetrical, cap refill > 2sec Gastrointestinal: Abdomen is soft and non tender, no masses, bowel sounds normal, no guarding, no rigidity or rebound Neurological: Cranial nerves II-XII grossly intact, motor 5/5 upper and lower extremity, pt will not follow commands to test for drift; pt did do heal to toe. Skin: Warm and dry, no rashes. Musculoskeletal: Neck is supple non tender, no vertebral tenderness Extremities are nontender, non swollen and have full range of motion. DIFFERENTIAL DIAGNOSIS: After history and physical exam differential diagnosis was considered for overdose of opoid, hypoxia, uti, cva, pneumonia, electrolyte abls (MARK HARLEY DO) Medical Decision Making Data Points Result Diagram: 08/17/18 1728 08/17/18 1937 Laboratory Hematology Test 08/17/18 17:28 08/17/18 18:30 08/17/18 19:37 Red Blood Count 4.85 M/uL (4.17-5.56) Mean Corpuscular Volume 97.2 fL (80.0-96.0) Mean Corpuscular Hemoglobin 31.9 pg (26.0-33.0) Mean Corpuscular Hemoglobin Concent 32.9 g/dL (32.0-36.0) Red Cell Distribution Width 15.6 % (11.5-14.5) Mean Platelet Volume 7.7 fL (7.2-11.1) Neutrophils (%) (Auto) 64.6 % (39.4-72.5) Lymphocytes (%) (Auto) 21.9 % (17.6-49.6) Monocytes (%) (Auto) 9.6 % (4.1-12.4) Eosinophils (%) (Auto) 2.9 % (0.4-6.7) Basophils (%) (Auto) 1.0 % (0.3-1.4) Nucleated RBC Relative Count (auto) 0.1 /100WBC Neutrophils # (Auto) 5.4 K/uL (2.0-7.4) Lymphocytes # (Auto) 1.8 K/uL (1.3-3.6) Monocytes # (Auto) 0.8 K/uL (0.3-1.0) Eosinophils # (Auto) 0.2 K/uL (0.0-0.5) Basophils # (Auto) 0.1 K/uL (0.0-0.1) Nucleated RBC Absolute Count (auto) 0.01 K/uL Prothrombin Time 13.8 seconds (12.0-14.4) Prothromb Time International Ratio 1.06 Activated Partial Thromboplast Time 30 seconds (23-35) Total Bilirubin 0.5 mg/dl (0.2-1.3) Aspartate Amino Transf (AST/SGOT) 51 U/L (0-35) Alanine Aminotransferase (ALT/SGPT) 38 U/L (0-56) Alkaline Phosphatase 48 U/L (0-126) Total Protein 7.0 g/dl (6.3-8.2) Albumin 4.0 g/dl (3.5-5.0) Urine Color [place] Urine Clarity Cloudy Urine pH 5.0 pH (4.8-9.5) Urine Specific [place] 1.024 Urine Protein Negative mg/dL (NEGATIVE) Urine Glucose (UA) Negative mg/dL (NEGATIVE) Urine Ketones Trace mg/dL (NEGATIVE) Urine Blood Moderate (NEGATIVE) Urine Nitrite Negative (NEGATIVE) Urine Bilirubin Small (NEGATIVE) Urine Urobilinogen 2.0 mg/dL (0.2-1.9) Urine Leukocyte Esterase Small (NEGATIVE) Urine RBC 67 /HPF (0-2/HPF) Urine WBC 5 /HPF (0-5/HPF) Urine Squamous Epithelial Cells Many /LPF (NONE-FEW) Urine Bacteria Negative /HPF (NONE-FEW) Urine Hyaline Casts Few /LPF (NONE-FEW) Urine Mucus None /HPF (NONE-FEW) Sodium Level 134 mmol/L (137-145) Potassium Level 4.3 mmol/L (3.5-5.0) Chloride Level 99 mmol/L (98-107) Carbon Dioxide Level 26 mmol/L (22-31) Blood Urea Nitrogen 51 mg/dl (7-18) Creatinine 6.00 mg/dl (0.52-1.04) Glomerular Filtration Rate Calc 6.9 Random Glucose 99 mg/dl (75-110) Calcium Level 8.5 mg/dl (8.4-10.2) Troponin I 0.717 ng/ml Chemistry Test 08/17/18 17:28 08/17/18 18:30 08/17/18 19:37 White Blood Count 8.4 k/uL (4.5-11.0) Red Blood Count 4.85 M/uL (4.17-5.56) Hemoglobin 15.5 g/dL (12.0-16.0) Hematocrit 47.1 % (34.0-47.0) Mean Corpuscular Volume 97.2 fL (80.0-96.0) Mean Corpuscular Hemoglobin 31.9 pg (26.0-33.0) Mean Corpuscular Hemoglobin Concent 32.9 g/dL (32.0-36.0) Red Cell Distribution Width 15.6 % (11.5-14.5) Platelet Count 357 K/uL (150-450) Mean Platelet Volume 7.7 fL (7.2-11.1) Neutrophils (%) (Auto) 64.6 % (39.4-72.5) Lymphocytes (%) (Auto) 21.9 % (17.6-49.6) Monocytes (%) (Auto) 9.6 % (4.1-12.4) Eosinophils (%) (Auto) 2.9 % (0.4-6.7) Basophils (%) (Auto) 1.0 % (0.3-1.4) Nucleated RBC Relative Count (auto) 0.1 /100WBC Neutrophils # (Auto) 5.4 K/uL (2.0-7.4) Lymphocytes # (Auto) 1.8 K/uL (1.3-3.6) Monocytes # (Auto) 0.8 K/uL (0.3-1.0) Eosinophils # (Auto) 0.2 K/uL (0.0-0.5) Basophils # (Auto) 0.1 K/uL (0.0-0.1) Nucleated RBC Absolute Count (auto) 0.01 K/uL Prothrombin Time 13.8 seconds (12.0-14.4) Prothromb Time International Ratio 1.06 Activated Partial Thromboplast Time 30 seconds (23-35) Total Bilirubin 0.5 mg/dl (0.2-1.3) Aspartate Amino Transf (AST/SGOT) 51 U/L (0-35) Alanine Aminotransferase (ALT/SGPT) 38 U/L (0-56) Alkaline Phosphatase 48 U/L (0-126) Total Protein 7.0 g/dl (6.3-8.2) Albumin 4.0 g/dl (3.5-5.0) Urine Color [place] Urine Clarity Cloudy Urine pH 5.0 pH (4.8-9.5) Urine Specific [place] 1.024 Urine Protein Negative mg/dL (NEGATIVE) Urine Glucose (UA) Negative mg/dL (NEGATIVE) Urine Ketones Trace mg/dL (NEGATIVE) Urine Blood Moderate (NEGATIVE) Urine Nitrite Negative (NEGATIVE) Urine Bilirubin Small (NEGATIVE) Urine Urobilinogen 2.0 mg/dL (0.2-1.9) Urine Leukocyte Esterase Small (NEGATIVE) Urine RBC 67 /HPF (0-2/HPF) Urine WBC 5 /HPF (0-5/HPF) Urine Squamous Epithelial Cells Many /LPF (NONE-FEW) Urine Bacteria Negative /HPF (NONE-FEW) Urine Hyaline Casts Few /LPF (NONE-FEW) Urine Mucus None /HPF (NONE-FEW) Glomerular Filtration Rate Calc 6.9 Calcium Level 8.5 mg/dl (8.4-10.2) Troponin I 0.717 ng/ml Coagulation Test 08/17/18 17:28 Prothrombin Time 13.8 seconds Prothromb Time International Ratio 1.06 Activated Partial Thromboplast Time 30 seconds Urinalysis Test 08/17/18 18:30 Urine Color [place] Urine Clarity Cloudy Urine pH 5.0 pH (4.8-9.5) Urine Specific [place] 1.024 Urine Protein Negative mg/dL (NEGATIVE) Urine Glucose (UA) Negative mg/dL (NEGATIVE) Urine Ketones Trace mg/dL (NEGATIVE) Urine Blood Moderate (NEGATIVE) Urine Nitrite Negative (NEGATIVE) Urine Bilirubin Small (NEGATIVE) Urine Urobilinogen 2.0 mg/dL (0.2-1.9) Urine Leukocyte Esterase Small (NEGATIVE) Urine RBC 67 /HPF (0-2/HPF) Urine WBC 5 /HPF (0-5/HPF) Urine Squamous Epithelial Cells Many /LPF (NONE-FEW) Urine Bacteria Negative /HPF (NONE-FEW) Urine Hyaline Casts Few /LPF (NONE-FEW) Urine Mucus None /HPF (NONE-FEW) (CONSTANCE CHRISTINA MD) EKG/Imaging EKG Interpretation nsr @ [address] wave changes. (MARK HARLEY DO) ED Course/Re-evaluation Clinical Indication for ER IV: Hydration, IV Access ED Course 08/17/2018 5:01:04 pm Pt back from CT and is less confused. Pt knows she is in a hospital and can tell me her name and which she could not due prior. Unclear if had tia or if it was related to hypoxia. nurses still attempting to get blood and urine. 08/17/2018 6:13:49 pm PTs labs came back pt with severe renal failure. Not sure if it is just due to dehydration. Will Place a romero and will give IV fluids. Spoke with DR. Araujo who states that she needs to be admitted but is not sure if it is best at a place with dialysis vs. [facility]. Will give patient a liter of NSS and then will recheck BMP. If BMP shows her creatine is improving then pt can stay here, if no improvement then she will need transfer. PT signed out to Dr. Christina. Believe pts trop is due to renal failure. (MARK HARLEY DO) Clinical Indication for ER IV: Hydration, IV Access ED Course Patient with acute renal failure and elevated troponin. Confusion seems to be improving a little. Improved Creatinine and Troponin after a liter of fluid. Discussed results with patient and her daughter. Plan to keep her here in [place] was agreed upon, explaining that we do not have specialists here, and this was understood, but patient and family would prefer to stay here and start treatment with the understanding that if not improving or other complications, then could consider transfer if needed. Discussed with Dr. Araujo, who accepted the patient for admission. Decision to Disposition Date: August 17, 2018 Decision to Disposition Time: 20:39 (CONSTANCE CHRISTINA MD) Depart Departure Latest Vital Signs Vital Signs Date Time Temp Pulse Resp B/P (MAP) Pulse Ox O2 Delivery O2 Flow Rate FiO2 08/17/18 17:27 60 86 08/17/18 16:42 92/80 (84) 08/17/18 16:12 3.0 08/17/18 16:03 99.0 Room Air (CONSTANCE CHRISTINA MD) Impression: Primary Impression: Acute metabolic encephalopathy Additional Impressions: Acute renal failure Elevated troponin Condition: Condition Unchanged Disposition: Admitted from ER Referrals: DANNI STEWART MD (PCP) Problem Qualifiers Additional Impressions: Acute renal failure Acute renal failure type: unspecified Qualified Codes: N17.9 - Acute kidney failure, unspecified MARK HARLEY DO August 17, 2018 16:04 CONSTANCE CHRISTINA MD August 17, 2018 20:50
[2018-08-17] MEDS ORDERED: NALOXONE HCL 0.4 MG/ML VIAL IVP ONE (16:10)
--- NOTE | 2018-08-17 16:47 | RADIOLOGY IMAGING REPORT ---
FACILITY: [facility] PATIENT NAME: Lauren Kuhn : 1945 MR: [id number] V: [id number] EXAM DATE: ORDERING PHYSICIAN: MARK HARLEY TECHNOLOGIST: Location: [facility] - [place] Patient: Lauren Kuhn : 1945 Visit/Account:[id number] Date of Sevice: 08/17/2018 EXAMINATION: CT HEAD WITHOUT CONTRAST COMPARISON: 03/28/2017. HISTORY: Altered mental status PROCEDURE: Noncontrast CT from the vertex through the skull base. One of the following dose optimizat ion techniques was utilized in the performance of this exam: Automated exposure control; adjustment o f the mA and/or kV according to the patient's size; or use of an iterative reconstruction technique. Specific details can be referenced in the facility's radiology CT exam operational policy. FINDINGS: Brain volume: Age-appropriate. Hemorrhage/extra-axial fluid: None. Mass effect/midline shift/edema: None. Ischemia: Huang-white differentiation is preserved. Ventricles and basal cisterns: Within normal limits. Posterior fossa: Negative. Vessels: Negative. Calvarium, skull base, and scalp: Negative. Visualized sinuses and orbits: Within normal limits. IMPRESSION: 1. No intracranial hemorrhage or mass effect. 2. No CT findings of acute ischemia. Report Dictated By: Ayo Spencer MD at 08/17/2018 4:38 PM Report E-Signed By: Ayo Spencer MD at 08/17/2018 4:43 PM WSN:[id number]
--- NOTE | 2018-08-17 16:50 | RADIOLOGY IMAGING REPORT ---
FACILITY: [facility] PATIENT NAME: Lauren Kuhn : 1945 MR: [id number] V: [id number] EXAM DATE: ORDERING PHYSICIAN: MARK HARLEY TECHNOLOGIST: Location: [facility] Patient: Lauren Kuhn : 1945 Visit/Account:[id number] Date of Sevice: 08/17/2018 Examination: CHEST PA LAT Comparison: 03/29/2017 and earlier. History: Altered mental status. Hypoxia. Findings: Cardiac and hilar contour is prominent but unchanged. Mild chronic interstitial thickening with no new or enlarging consolidation, nodule, or definite evidence of acute peribronchial inflammat ion. No pneumothorax, edema, or effusion. Thoracolumbar junction and lumbar spine incompletely visual ized postsurgical and likely posttraumatic/degenerative change as before. IMPRESSION: Chronic findings with no evidence of acute cardiopulmonary disease. Report Dictated By: Ayo Spencer MD at 08/17/2018 4:44 PM Report E-Signed By: Ayo Spencer MD at 08/17/2018 4:46 PM WSN:[id number]
[2018-08-17 17:39] LABS: PLATELET COUNT, AUTOMATED 357 K/uL (150-450)
[2018-08-17 17:45] LABS: INR 1.06
[2018-08-17] MEDS ORDERED: NS(*) 0.9% 500 ML BAG 500 ML IV ONE (17:50)
--- NOTE | 2018-08-17 18:14 | EKG ---
FACILITY: [facility] [place] PATIENT NAME: JENNIFER SADLER : [id number] MR: [id number] V: [id number] EXAM DATE: ORDERING PHYSICIAN: MARK HARLEY TECHNOLOGIST: VANESSA Test Reason : CONFUSION Blood Pressure : / mmHG Vent. Rate : 063 BPM Atrial Rate : 063 BPM P-R Int : 168 ms QRS Dur : 088 ms QT Int : 412 ms P-R-T Axes : 038 061 062 degrees QTc Int : 421 ms Normal sinus rhythm ST and T wave abnormality, consider anterior ischemia Abnormal ECG Confirmed by CHRISTY MENA ([id number]) on 08/17/2018 6:35:30 PM Referred By: CRICKET Confirmed By:CHRISTY MENA
[2018-08-17] MEDS ORDERED: NS(*) 0.9% 1000 ML BAG 1,000 ML IV ONE (18:30)
[2018-08-17 22:15] VITALS: BP 100/60
[2018-08-17] MEDS: NS(*) 0.9% 1000 ML BAG 1,000 ML IV PRN (23:09)
--- NOTE | 2018-08-17 23:28 | History & Physical ---
History of Present Illness Chief Complaint Agitation, confusion. History of Present Illness The patient is a 72 year old female with PMH significant for multiple medical problems who [facility] by her daughter after the patient's h usband became concerned because she was pacing in their home, incoherent and unable to speak properly. The patient's daughter states the patient was not wearing her O2 and repeating the same phrase over and over when she arrived. The patient's daughter also notes that her mother has not been eating well. She does drink a fair amount of iced tea daily however. The patient denies any symptoms and states she feels fine. The patient has chronic pain and takes MS Contin 15mg qid and gabapentin as w ell. Her medications were found on the floor and the family initially worried that the patient had inadvertently taken too many of her medications. In the ER, work up revealed the patient's creatinine was 6.4. Troponin was also slightly elevated at 0.7. The patient and her family declined transfer to a higher level of care for specialty care with nephrology and cardiology. She was recommended for admission [facility]. History Problems: (1) Stasis dermatitis Status: Chronic (2) Spondylolysis Status: Chronic (3) Fibromyalgia Status: Chronic (4) Nephrolithiasis Status: Chronic (5) Post laminectomy syndrome Status: Chronic (6) Fatty liver Status: Chronic (7) Interstitial fibrosis Status: Chronic (8) Urinary incontinence Status: Chronic (9) Mixed hyperlipidemia Status: Chronic (10) Vitamin D deficiency Status: Chronic (11) Hypothyroidism Status: Chronic (12) Hypertension Status: Chronic Home Meds Active Scripts Cephalexin 500 Mg Tab (KEFLEX 500 MG TAB) 500 Mg Tablet, 1 TAB PO BID for 7 Days, #14 TAB 0 Refills Prov:MAT LOPEZ NPC 08/07/18 Talc/Cellulos/Chloroxy/Aldioxa (ZEASORB POWDER) 71 Gm Powder, 1 MARK TP BID for 30 Days, #1 BOTTLE 2 Refills Apply powder over triamcinolone cream twice daily to areas under breast and groin creases. Prov:MAT LOPEZ NPC 08/07/18 Triamcinolone Acetonide 0.1% Cr 15 Gm Tube (TRIAMCINOLONE ACETONIDE 0.1% CREAM) 15 Gm Cream..g., 1 MARK TP BID for 30 Days, #30 TUBE 1 Refill Apply small amount twice daily under breast and groin creases followed by Zeasorb powder. Prov:MAT LOPEZ 08/07/18 Clobetasol Propionate (CLOBETASOL PROPIONATE) 15 Gm Oint...g., 1 MARK TP BID for 30 Days, #30 TUBE 1 Refill Apply twice a day to legs only as needed to control scale. Do not use on face, neck, underarms or groin. Prov:MAT LOPEZ 08/07/18 Fluconazole (DIFLUCAN) 150 Mg Tablet, 150 MG PO QDAY, #1 TAB Prov:FREDERICKMAXIMILIANOJO DO 07/30/18 Losartan Potassium (LOSARTAN POTASSIUM) 100 Mg Tablet, 100 MG PO QDAY, #30 TAB 0 Refills Prov:DANNI STEWART MD 07/08/18 Oxybutynin Chloride (OXYBUTYNIN CHLORIDE) 5 Mg Tablet, 1 TAB PO QDAY, #90 TAB 3 Refills Prov:DANNI STEWART MD 03/27/18 Fenofibrate,Micronized (FENOFIBRATE) 134 Mg Capsule, 134 MG PO QDAY, #30 CAPSULE 11 Refills Prov:DANNI STEWART MD 08/14/17 Levothyroxine Sodium (SYNTHROID) 112 Mcg Tablet, 112 MCG PO QDAY, #90 TAB 3 Refills Prov:DANNI STEWART MD 07/12/17 Hydrocortisone 2.5 % 30 GM CREAM (Hydrocortisone 2.5 % 30 GM CREAM) 2.5 % Cream.appl, 1 MARK TP BID for 30 Days, #1 TUBE 1 Refill Apply to face only. Prov:MAT LOPEZ 07/11/17 Hydrocortisone Acetate (ANUSOL-HC) 25 Mg Supp.rect, 1 SUPP.RECT RC BID, #30 SUPP.RECT 0 Refills Prov:SHEILA SPARKS MD 05/22/17 Gabapentin (GABAPENTIN) 300 Mg Capsule, 3 TAB PO QAM, #630 CAPSULE 3 Refills TAKE 2 in am and 5 in pm Prov:DANNI STEWART MD 02/11/17 Duloxetine HCl (Duloxetine HCl) 60 Mg Capsule.dr, 2 CAP PO DAILY, #180 TAB 3 Refills Prov:DANNI STEWART MD 11/13/17 Metoprolol Succinate (METOPROLOL SUCCINATE) 100 Mg Tab.er.24h, 1 TAB PO QDAY, #90 TAB 3 Refills Prov:DANNI STEWART MD 02/11/17 Allopurinol (Allopurinol) 300 Mg Tablet, 1 TAB PO DAILY, #90 TAB 3 Refills Prov:DANNI STEWART MD 02/11/17 Cyclobenzaprine Hcl (CYCLOBENZAPRINE HCL) 10 Mg Tablet, 1 TAB PO QHS, #90 TAB 3 Refills Prov:DANNI STEWART MD 02/11/17 [place]-3 (FISH OIL 500 MG SOFTGEL) 500 Mg Cap, 500 MG PO QDAY, #30 CAP Prov:CHRISTY BRANHAM MD 10/19/15 Cyclosporine (RESTASIS) 1 Each Droperette, 1 EACH OU BID, #1 BOT Prov:CHRISTY BRANHAM MD 10/19/15 Reported Medications Docusate Sodium (DOCUSATE SODIUM) 100 Mg Capsule, 100 MG PO DAILY, CAPSULE 08/04/18 Cyanocobalamin (Vitamin B-12) (VITAMIN B-12) 500 Mcg Tablet, 500 MCG PO DAILY 08/04/18 Cholecalciferol (Vitamin D3) (VITAMIN D) 400 Unit Capsule, 125 MCG PO DAILY, CAPSULE 08/04/18 Loratadine (LORATADINE) 10 Mg Tablet, 10 MG PO DAILY 08/04/18 Aspirin (ASPIRIN) 81 Mg Tab.chew, 81 MG PO QDAY, TAB.CHEW 08/04/18 Gluc Regalado/Chondro Regalado A/Vit C/Mn (GLUCOSAMINE CHONDROITIN TAB) 1 Each Tablet, 1 EACH PO BID 08/04/18 Diphenhydramine Hcl (DIPHENHYDRAMINE HCL) 25 Mg Tablet, 25 MG PO PRN, TAB 02/11/17 Aspirin/Acetaminophen/Caffeine (EXCEDRIN EXTRA STRENGTH CAPLET) 1 Each Tablet, 1 EACH PO PRN 02/11/17 Multivits,Th W-Fe,Other Min (COMPLETE MULTIVITAMIN) 1 Each Tablet, 1 TAB PO DAILY 09/08/15 [Oxygen ] No Conflict Check, 2-3 L NA DAILY ON CONTINUOUSLY 08/26/13 Oxycodone Hcl/Acetaminophen (PERCOCET 10-325 MG TABLET) 1 Each Tablet, 1 EACH PO QID PRN for PAIN q 4 hr as needed for pain 5/25/14 Morphine Sulfate (MS CONTIN) 15 Mg Tablet.er, 15 MG PO QID 08/23/13 Allergies: Coded Allergies: Sulfa (Sulfonamide Antibiotics) (Verified Allergy, Mild, SWELLING, 08/26/17) Patient History: FH: COPD (chronic obstructive pulmonary disease) SISTER, Age:70 SISTER, Age:60 FH: breast cancer MOTHER, , Age:69 FH: liver cancer FATHER, , Age:69 FH: lung cancer BROTHER, , Age:62 FH: ovarian cancer MOTHER, , Age:69 FH: smoking FATHER, , Age:69 SISTER, Age:70 SISTER, Age:60 BROTHER, , Age:62 Other Social/Family Hx The patient lives with her [place] [facility]. She is retired. She has twin daughters who live in [place] and look in on her at least weekly. Hx Smoking: No Smoking Status: Former Smoker Exposure to Second Hand Smoke?: No Caffeine Intake: Tea Caffeine/Cups Per Day: 12 Hx Alcohol Use: No Hx Substance Use Disorder: No Social Drug Use: Never Review of Systems All Systems Reviewed/Normal: Yes, Except as Noted Constitutional: No Fever Cardiovascular: No Chest Pain Respiratory: Shortness of Breath Gastrointestinal: No Nausea, No Vomiting Genitourinary: No Dysuria Musculoskeletal: Pain (Chronic pain in back.) Exam Vital Signs Vital Signs Date Time Temp Pulse Resp B/P (MAP) Pulse Ox O2 Delivery O2 Flow Rate FiO2 08/18/18 01:36 89 Nasal Cannula 5.0 08/17/18 23:00 60 08/17/18 22:15 98.5 16 100/60 (73) General Appearance: Alert, Awake, No Acute Distress Neuro: Other (Significant difficulty with word finding.) Eyes: PERRLA ENT: Other (Mucous membranes dry.) Neck: No Masses Cardiovascular: Regular Rate and Rhythm Respiratory: Clear to Auscultation GI: Abd Soft and Non-Tender Extremities: Warm, Pulses (Diminished in feet.), Edema (Trace.) Integumentary: Scaly / Dry Skin (Over lower extremities, feet and toes. R heel with split in skin. Toes with scabs on top of several toes. Open wound over R buttock and early open wound over L buttock and top of marielle cleft.) Psych: Alert & Oriented X3, Other (Agitated and unable to complete sentences due to word finding difficulty.) Medical Decision Making Data Points Result Diagram: 08/17/18 1728 08/17/18 1937 Item Value Date Time Random Glucose 105 mg/dl 08/17/18 1728 Calcium Level 9.4 mg/dl 08/17/18 1728 Total Bilirubin 0.5 mg/dl 08/17/18 1728 Aspartate Amino Transf (AST/SGOT) 51 U/L H 08/17/18 1728 Alanine Aminotransferase (ALT/SGPT) 38 U/L 08/17/18 1728 Alkaline Phosphatase 48 U/L 08/17/18 1728 Total Protein 7.0 g/dl 08/17/18 1728 Albumin 4.0 g/dl 08/17/18 1728 Troponin I 0.764 ng/ml *H 08/17/18 1728 Troponin I 0.717 ng/ml *H 08/17/18 1937 Urine Color [place] 08/17/18 1830 Urine Clarity Cloudy 08/17/18 1830 Urine pH 5.0 pH 08/17/18 1830 Urine Specific [place] 1.024 08/17/18 1830 Urine Protein Negative mg/dL 08/17/18 1830 Urine Glucose (UA) Negative mg/dL 08/17/18 1830 Urine Ketones Trace mg/dL 08/17/18 1830 Urine Blood Moderate 08/17/18 1830 Urine Nitrite Negative 08/17/18 1830 Urine Bilirubin Small 08/17/18 1830 Urine Urobilinogen 2.0 mg/dL 08/17/18 1830 Urine Leukocyte Esterase Small H 08/17/18 1830 Urine RBC 67 /HPF 08/17/18 1830 Urine WBC 5 /HPF 08/17/18 1830 Urine Squamous Epithelial Cells Many /LPF H 08/17/18 1830 Urine Bacteria Negative /HPF 08/17/18 1830 Urine Hyaline Casts Few /LPF 08/17/18 1830 Urine Mucus None /HPF 08/17/18 1830 Prothrombin Time 13.8 seconds 08/17/18 1728 Prothromb Time International Ratio 1.06 08/17/18 1728 Activated Partial Thromboplast Time 30 seconds 08/17/18 1728 EKG / Imaging EKG Interpretation FACILITY: [facility] PATIENT NAME: JENNIFER SADLER : [id number] MR: [id number] V: [id number] EXAM DATE: ORDERING PHYSICIAN: MARK HARLEY TECHNOLOGIST: VANESSA Test Reason : CONFUSION Blood Pressure : / mmHG Vent. Rate : 063 BPM Atrial Rate : 063 BPM P-R Int : 168 ms QRS Dur : 088 ms QT Int : 412 ms P-R-T Axes : 038 061 062 degrees QTc Int : 421 ms Normal sinus rhythm ST and T wave abnormality, consider anterior ischemia Abnormal ECG Confirmed by CHRISTY MENA ([id number]) on 08/17/2018 6:35:30 PM Referred By: CRICKET Confirmed By:CHRISTY MENA [id number] T: [facility]/ Imaging FACILITY: [facility] PATIENT NAME: Jennifer Sadler : 1945 MR: [id number] V: [id number] EXAM DATE: ORDERING PHYSICIAN: MARK HARLEY TECHNOLOGIST: Location: [facility] - [place], [place] Patient: Jennifer Sadler : 1945 Visit/Account:[id number] Date of Sevice: 08/17/2018 Examination: CHEST PA LAT Comparison: 03/29/2017 and earlier. History: Altered mental status. Hypoxia. Findings: Cardiac and hilar contour is prominent but unchanged. Mild chronic interstitial thickening with no new or enlarging consolidation, nodule, or definite evidence of acute peribronchial inflammation. No pneumothorax, edema, or effusion. Thoracolumbar junction and lumbar spine incompletely visualized postsurgical and likely posttraumatic/degenerative change as before. IMPRESSION: Chronic findings with no evidence of acute cardiopulmonary disease. Report Dictated By: Ayo Spencer MD at 08/17/2018 4:44 PM Report E-Signed By: Ayo Spencer MD at 08/17/2018 4:46 PM WSN:[id number] FACILITY: [facility] PATIENT NAME: Jennifer Sadler : 1945 MR: [id number] V: [id number] EXAM DATE: [id number] ORDERING PHYSICIAN: MARK HARLEY TECHNOLOGIST: Location: [facility] - [place], [place] Patient: Jennifer Sadler : 1945 Visit/Account:[id number] Date of Sevice: 08/17/2018 EXAMINATION: CT HEAD WITHOUT CONTRAST COMPARISON: 03/28/2017. HISTORY: Altered mental status PROCEDURE: Noncontrast CT from the vertex through the skull base. One of the following dose optimization techniques was utilized in the performance of this exam: Automated exposure control; adjustment of the mA and/or kV according to the patient's size; or use of an iterative reconstruction technique. Specific details can be referenced in the facility's radiology CT exam operational policy. FINDINGS: Brain volume: Age-appropriate. Hemorrhage/extra-axial fluid: None. Mass effect/midline shift/edema: None. Ischemia: Hunag-white differentiation is preserved. Ventricles and basal cisterns: Within normal limits. Posterior fossa: Negative. Vessels: Negative. Calvarium, skull base, and scalp: Negative. Visualized sinuses and orbits: Within normal limits. IMPRESSION: 1. No intracranial hemorrhage or mass effect. 2. No CT findings of acute ischemia. Report Dictated By: Ayo Spencer MD at 08/17/2018 4:38 PM Report E-Signed By: Ayo Spencer MD at 08/17/2018 4:43 PM WSN:[id number] Pre-Admit Course Medical Record Review: Yes Assessment and Plan Problems: (1) Acute renal failure Status: Acute Assessment & Plan: EMR shows that the patient's creatinine was 1.5 on 07/22/18. Will admit and hydrate. Delacruz catheter placed for close monitoring of urine output. Repeat labs in am. Hold all medications for now. (2) Acute metabolic encephalopathy Status: Acute Assessment & Plan: The patient's CT scan of the brain was negative for acute issues. She improved somewhat with hydration in the ER. Will monitor closely. If she does not continue to improve, consider MRI brain. (3) Elevated troponin Status: Acute Assessment & Plan: The patient denies chest pain. Will monitor with serial troponins. EKG shows some ST-T wave changes in the anterior leads. (4) Pressure sore Assessment & Plan: The patient has pressure sores on both buttocks, R>L. She did see Dr. Sparks for these but has not been compliant with his recommendations per her daughter. Will place Mepilex and have PT wound care assess and give recommendations. (5) Hypertension Status: Chronic Assessment & Plan: The patient was hypotensive on presentation. Her BP is improving with IV fluids. Holding most medications for now due to ARF. (6) Hypothyroidism Status: Chronic Assessment & Plan: Continue levothyroxine. TSH pending. (7) Stasis dermatitis Status: Chronic Assessment & Plan: The patient sees Mat Lopez for her lower extremity dermatitis. She has been using a prescribed cream for this. Per the external med history, she recently filled RXs for clobetasol and TAC creams. (8) Chronic respiratory failure with hypoxia Status: Chronic Assessment & Plan: Continue O2 to keep sats 90% or greater. (9) Chronic back pain Status: Chronic Assessment & Plan: The patient takes gabapentin as well as MS Contin 15mg qid at home. Will hold for now due to risk of respiratory depression with ongoing use of morphine in the face of acute renal failure. Time Spent on Plan of Care: < 30 min Venous Thromboembolism Antithrombotics Is Pt On Any Antithrombotics?: No Prophylaxis Tx Contraindicated Pharmacological Contraindicati: Renal Impairment Mechanical Contraindications: Medical Contraindication Exam Sepsis Risk: No Definite Risk Problem Qualifiers (1) Acute renal failure: Acute renal failure type: unspecified Qualified Codes: N17.9 - Acute kidney failure, unspecified CHRISTY BRANHAM MD August 17, 2018 23:28
[2018-08-18] VITALS (9 sets, daily range): BP systolic 81–138; BP diastolic 46–90
[2018-08-18 06:17] LABS: PLATELET COUNT, AUTOMATED 325 K/uL (150-450)
[2018-08-18] MEDS: NS(*) 0.9% 1000 ML BAG 1,000 ML IV PRN ×2 (08:34→17:44)
--- NOTE | 2018-08-18 12:01 | Hospitalist Progress Note ---
Subjective Progress Notes Subjective This patient presented with acute renal failure. She had no acute events overnight. Patient Complains of: Cardiovascular: No: Chest Pain Respiratory: No: Shortness of Breath Physical Exam Vital Signs Date Time Temp Pulse Resp B/P (MAP) Pulse Ox O2 Delivery O2 Flow Rate FiO2 08/18/18 11:19 93 Nasal Cannula 5.0 08/18/18 10:41 98.0 65 11 117/64 (81) Intake and Output 08/18/18 07:00 Intake Total 1789 ml Output Total 450 ml Balance 1339 ml Intake IV Total 1789 ml Output Urine Total 450 ml Neuro: Other (confused) Cardiovascular: Regular Rate and Rhythm Respiratory: Clear to Auscultation Result Diagram: 08/18/1852608/18/18526 Assessment and Plan Problems: (1) Acute renal failure Status: Acute Assessment & Plan: Her creatinine was significantly elevated at admission. It has been improving with IV fluids. (2) Acute metabolic encephalopathy Status: Acute Assessment & Plan: She did present with confusion. A CT scan of the head was unremarkable. Her confusion has waxed and waned overnight. (3) Elevated troponin Status: Acute Assessment & Plan: Her troponin was elevated at admission, but suspect this is related to her renal function. Her levels have been improving. (4) Pressure sore Assessment & Plan: The patient has pressure sores on both buttocks, R>L. She did see Dr. Anderson for these but has not been compliant with his recommendations per her daughter. PT wound care has been ordered. (5) Hypertension Status: Chronic Assessment & Plan: The patient was hypotensive on presentation. Her BP is improving with IV fluids. (6) Hypothyroidism Status: Chronic Assessment & Plan: Continue levothyroxine. TSH pending. (7) Stasis dermatitis Status: Chronic Assessment & Plan: The patient sees Barb Lopez for her lower extremity dermatitis. She has been using a prescribed cream for this. Per the external med history, she recently filled RXs for clobetasol and TAC creams. (8) Chronic respiratory failure with hypoxia Status: Chronic Assessment & Plan: Continue O2 to keep sats 90% or greater. (9) Chronic back pain Status: Chronic Assessment & Plan: The patient takes gabapentin as well as MS Contin 15mg qid at home. Will hold for now due to risk of respiratory depression with ongoing use of morphine in the face of acute renal failure. Exam Sepsis Risk: No Definite Risk Problem Qualifiers (1) Acute renal failure: Acute renal failure type: unspecified Qualified Codes: N17.9 - Acute kidney failure, unspecified (2) Hypertension: Hypertension type: essential hypertension Qualified Codes: I10 - Essential (primary) hypertension SHEILA AZUL DO August 18, 2018 12:01
--- NOTE | 2018-08-18 14:31 | Medical Nutrition Therapy ---
Nutrition Anthropometrics Height (Inches): 64.00 Height (Calculated Centimeters: 162.602602 Weight (Pounds): 186 Weight (Calculated Kilograms): 84.368 BMI: 31.9 Randy Nutrition Score: Adequate Randy Nutrition Risk Score: 18 Dietary Referral Nutrition Risk Factors: Nutrition Risk Comment: POOR APPETITE Physical Findings Physical Appearance: Obese BMI 30-39 Skin Appearance Skin Appearance: Edema Edema Location Modifier: Both Edema Location: Lower Extremity Type of Edema: Degree of Edema: 1+ Gastrointestinal Symptoms GI Symtoms: Tube Present: Bowel Sounds: Recent Bowel Pattern: Stool Characteristics: Nutritional Diagnosis Nutritional Risk Acuity 1: Acute/ES Renal Nutritional Risk Acuity 2: St III or IV Press Ulcer (unstaged) Past Medical History: HX of Hypothyroidism, Hypertension, Chronic pain, Urinary incontinence, Nephrolithiasis, Mixed hyperlipidemia, Pulmonary fibrosis, Osteoporosis, Thrombocytosis, DJD, Fibromyalgia, Hyperuricemia Nutritional Acuity: 1-High Nutrition Diagnosis: Decreased Nutrient Needs Nutrition Etiology: Physiological Causes Nutrition Problem/Etiology/Sym: protein, Na, fluids, K+, phosphorus R/t dx ARF AEB BUN 51, creatinine 4.7. Increased protein needs r/t pressure area to buttock and sacrum. Adjusted Energy Requirement Re: 1625 (HB adj for obesity X1.1 SF) Protein Requirement: 77 (1gm/kg IBW) Fluid Requirement: 1625 (1ml/kcal) Diet Type: Diet as Tolerated LAINEY/REG Nutrition Intervention: Cont diet as ordered, Encourage intake Additional Diet Restrictions: OFFER HOLLEY AT BRFT AND SUPPER Nutrition Monitoring & Eval Nutrition Goals: Eat 75-100% Meal RD Patient Assessment Time: [address] Assessment Type: RD Assessment Patient Nutrition Acuity: 1-High Follow Up Date: August 21, 2018 Nutritional Comment: 08/18 Pt admitted for ARF. Pt hs dx metabolic enephalopathy and nursing reporting pt is obtunded. Pt on regular diet but is not eating, probably r/t mental status. Alb 3.2, BUN 51, Creatinine 4.7. Pt has unstaged pressure ulcers to buttock and sacrum. Goal is to provide adequate protein for healing but not excessive to compromise renal status. Will cont to monitor. LIZ GARDUNO August 18, 2018 14:31
--- NOTE | 2018-08-18 19:20 | NUR ---
Physical Therapy Impression PT subjective eval completed with chart review and pt interview after wound care eval completed. Pt notes that she has 2 steps to enter home and resides with her spouse. Pt has had [facility] services R) side of gluteal cleft: Non-excisional debridement completed with the use of tweezers to a depth of subcutaneous tissue in order to remove slough and non-viable tissue. Wound cleansed with sterile saline and treated with silver calcium alginate, secured with Silicone border 4x4 dressing. This area is not considered a pressure ulcer, as it is not over a bony prominence. This site is likely related to sheering, as well as moisture from incontinence that is poorly managed. L) side of gluteal cleft: No selective debridement indicated. Mechanical debridement with gauze and cleansing with sterile saline completed. At risk and slightly open area covered with mepilex border 2x5 dressing, to minimize skin approximation at gluteal cleft. L) high inner thigh near labia: Wound appears to be in an area where edge of incontinence brief would directly rub and contribute to a possible erosion wound with chronic friction/trauma in this area. Pt notes that Dr. Anderson is aware of this wound and she has pads at home that she is to wear to minimize the injury at this area. Wound cleansed with sterile saline and nursing requested to observe this wound as well, since earlier, pt would not allow nurse to complete pericare inspection and would not allow nurse to complete hygenic catheter care. Physical Therapy Goals 1. Pt to be SBA/CGA for bed mobility and supine to/from sit trnsfrs 2. pt to be SBA/CGA for sit to/from stand transfers 3. Pt to tolerate ambulation x 100' with least restrictive device and SBA 4. Pt to complete up/down platform step x 2 with rail and SBA Patient's Goals
[2018-08-19] MEDS: NS(*) 0.9% 1000 ML BAG 1,000 ML IV PRN (02:37)
[2018-08-19 04:11] VITALS: BP 124/62
[2018-08-19] MEDS: LEVOTHYROXINE SOD 0.112 MG TAB PO SCH (05:28)
[2018-08-19 06:11] LABS: PLATELET COUNT, AUTOMATED 291 K/uL (150-450)
[2018-08-19 06:53] VITALS: BP 115/60
[2018-08-19] MEDS: ALLOPURINOL 100 MG TAB PO SCH (08:49)
[2018-08-19] MEDS ORDERED: METOPROLOL SUCC XL 50 MG TABCR 50 MG TAB.ER.24H PO SCH (10:55)
[2018-08-19] MEDS ORDERED: NS(*) 0.9% 1000 ML BAG 1,000 ML IV PRN (10:59)
--- NOTE | 2018-08-19 11:12 | Hospitalist Progress Note ---
Subjective Progress Notes Subjective She is awake and alert. She c/o diffuse aches/pains, which have been chronic for her. She has been managed with morphine ext release 15mg QID, Percocet 7.5/325 1-2 q4-6 for breakthrough pain. She is also on Duloxetine and gabapentin. Physical Exam Vital Signs Date Time Temp Pulse Resp B/P (MAP) Pulse Ox O2 Delivery O2 Flow Rate FiO2 08/19/18 09:41 84 08/19/18 08:55 Nasal Cannula 3.0 08/19/18 06:53 98.5 58 16 115/60 (78) Intake and Output 08/19/18 07:00 Intake Total 2248 ml Output Total 1900 ml Balance 348 ml Intake Oral 0 ml IV Total 2248 ml Output Urine Total 1900 ml General Appearance: Alert, Awake Cardiovascular: Regular Rate and Rhythm Respiratory: Clear to Auscultation GI: Soft and Non-Tender Extremities: Warm, Perfused Integumentary: Other (Areas dermatitis under all skin folds. She also appears to have some stasis dermatitis both distal legs.) Result Diagram: 08/19/18 0528 08/19/18 0528 Assessment and Plan Problems: (1) Acute renal failure Status: Acute Assessment & Plan: Most likely due to dehydration. Her creatinine was significantly elevated at admission (6.4). It has been improving with IV fluids and is now 1.8. (2) Acute metabolic encephalopathy Status: Acute Assessment & Plan: She did present with confusion. A CT scan of the head was unremarkable. Her confusion has improved significantly. It may have been related to her pain medication use. Unfortunately, we will need to restart her medications as she will almost certainly start withdrawing very soon. (3) Elevated troponin Status: Acute Assessment & Plan: Her troponin was elevated at admission, but suspect this was related to her renal function. Her levels have been improving. (4) Pressure sore Assessment & Plan: The patient has pressure sores on both buttocks, R>L. She did see Dr. Anderson for these but has not been compliant with his recommendations per her daughter. PT wound care has been ordered. Will also have therapy see for mobilization. (5) Hypertension Status: Chronic Assessment & Plan: The patient was hypotensive on presentation. Her BP is improved with IV fluids. Will resume her beta jyoti (metoprolol). (6) Hypothyroidism Status: Chronic Assessment & Plan: Continue levothyroxine. TSH is normal at 4.63. (7) Stasis dermatitis Status: Chronic Assessment & Plan: The patient sees Barb Lopez for her lower extremity dermatitis. She has been using a prescribed a steroid cream for this (clobetasol and TAC creams). (8) Chronic respiratory failure with hypoxia Status: Chronic Assessment & Plan: Continue O2 to keep sats 90% or greater. (9) Chronic back pain Status: Chronic Assessment & Plan: The patient takes gabapentin, duloxetine, as well as MS Contin 15mg qid and Percocet at home. We did initially hold due to risk of respiratory depression in the face of acute renal failure, but will now need to resume. (10) Intertriginous dermatitis associated with moisture Status: Chronic Assessment & Plan: Possible atul. Will use Nystatin powder BID. Exam Sepsis Risk: No Definite Risk Problem Qualifiers (1) Acute renal failure: Acute renal failure type: unspecified Qualified Codes: N17.9 - Acute kidney failure, unspecified (2) Hypertension: Hypertension type: essential hypertension Qualified Codes: I10 - Essential (primary) hypertension DELMY BRANHAM MD August 19, 2018 11:12
[2018-08-19 11:30] VITALS: BP 157/95
--- NOTE | 2018-08-19 11:31 | NUR ---
Physical Therapy Impression CO-treat with OT for pt safety and time split for billing purposes. Pt is at her baseline for mobility and declines further needs at this time. Pt demos poor insight into her safety awareness and limitations. Recommend [facility] PT upon d/c. Physical Therapy Goals 1. Pt to be SBA/CGA for bed mobility and supine to/from sit trnsfrs 2. pt to be SBA/CGA for sit to/from stand transfers 3. Pt to tolerate ambulation x 100' with least restrictive device and SBA 4. Pt to complete up/down platform step x 2 with rail and SBA Patient's Goals
[2018-08-19] MEDS: DULoxetine HCL 30 MG CAPCR PO SCH (11:32)
[2018-08-19] MEDS: MORPHINE CR 15 MG TABCR PO SCH ×3 (11:32→22:59)
[2018-08-19] MEDS: GABAPENTIN 300 MG CAP PO SCH (11:32)
[2018-08-19] MEDS: DOCUSATE SODIUM 100 MG CAP PO SCH ×2 (11:33→21:13)
[2018-08-19] MEDS: NYSTATIN 100,000 U/GM PWD 15GM TP SCH ×2 (11:34→21:14)
[2018-08-19] MEDS: TRIAMCINOLONE ACE 0.1% CR 80GM TP SCH ×2 (11:34→21:14)
[2018-08-19] MEDS: oxyCODON/ACET (*)5/325MG (CII) 1 TAB TAB PO PRN (12:47)
[2018-08-19 15:36] VITALS: BP 133/79
--- NOTE | 2018-08-19 16:51 | NUR ---
Occupational Therapy Impression SBA supine to sit bed mobility. CGA ambulation with RW. Close SBA toileting. Set-up LB dressing. Close SBA/CGA provided throughout tx due to pt's decreased safety awareness and impulsivity. Cues and education provided for safety and O2 needs with no carryover. Pt reports no concerns for discharge home when medically appropriate. Pt at baseline for ADLs, no further OT needs. Recommend HH services upon discharge. Occupational Therapy Goals Patient's Goal
--- NOTE | 2018-08-19 16:54 | NUR ---
OCCUPATIONAL THERAPY Dressing Assistance: SBA Dressing Aid Required: None Bathing Assistance: N/T Home Assessment: Not Completed Feeding Assistance: Independent Feeding Specialized Equipment: Toilet Use: Standby Assistance CGA Verbalizes Needs: Yes Understands Precautions: Yes, occasionally Cooperative: Yes Family Teaching: No Occupational Therapy Comment: Pt may benefit from services to assist with transition home and ensure appropriate home set-up and AE needs.
[2018-08-19 19:37] VITALS: BP 149/74
[2018-08-19 23:21] VITALS: BP 157/79
[2018-08-20] MEDS: MORPHINE CR 15 MG TABCR PO SCH ×2 (05:27→11:20)
[2018-08-20] MEDS: LEVOTHYROXINE SOD 0.112 MG TAB PO SCH (05:27)
[2018-08-20 05:28] VITALS: BP 147/85
[2018-08-20 05:49] LABS: PLATELET COUNT, AUTOMATED 301 K/uL (150-450)
[2018-08-20 08:24] VITALS: BP 169/81
[2018-08-20] MEDS: ALLOPURINOL 100 MG TAB PO SCH (08:55)
[2018-08-20] MEDS: NYSTATIN 100,000 U/GM PWD 15GM TP SCH (08:55)
[2018-08-20] MEDS: DULoxetine HCL 30 MG CAPCR PO SCH (08:55)
[2018-08-20] MEDS: oxyCODON/ACET (*)5/325MG (CII) 1 TAB TAB PO PRN (08:55)
[2018-08-20] MEDS: DOCUSATE SODIUM 100 MG CAP PO SCH (08:55)
[2018-08-20] MEDS: GABAPENTIN 300 MG CAP PO SCH (08:55)
[2018-08-20] MEDS ORDERED: METOPROLOL SUCC XL 50 MG TABCR 50 MG TAB.ER.24H PO SCH (09:00)
[2018-08-20] MEDS: TRIAMCINOLONE ACE 0.1% CR 80GM TP SCH (09:22)
[2018-08-20] MEDS ORDERED: OXYC-374 PO (11:34)
--- NOTE | 2018-08-20 14:12 | Hospitalist Depart ---
Discharge Summary Reason for Hosp/Final Diag: (1) Acute metabolic encephalopathy Status: Acute Hospital Course & Plan: She did present with confusion. A CT scan of the head was unremarkable. Her confusion has resolved. It was likely a combination of dehydration with sedative medication use. She was hydrated. She is back on her Gabapentin, Cymbalta, MS Contin and Percocet without changes in mental status. She will need close follow up with her PCP. (2) Acute renal failure Status: Acute Hospital Course & Plan: Most likely due to dehydration. Her creatinine was significantly elevated at admission (6.4). It has resolved to baseline with IVF. (3) Elevated troponin Status: Acute Hospital Course & Plan: Her troponin was elevated at admission, but suspect this was partly related to her renal function. Her levels have been improving. ECG showed some ST-T abnormalities concerning for ischemia that were new from previous. The patient is asymptomatic. Echo showed a normal EF and no WM abnormalities. She should get a stress test with imaging as follow up as an outpatient. (4) Pressure sore Hospital Course & Plan: The patient has pressure sores on both buttocks, R>L. She did see Dr. Sparks for these but has not been compliant with his recommendations per her daughter. PT wound care with nursing as an outpatient. (5) Hypertension Status: Chronic Hospital Course & Plan: The patient was hypotensive on presentation. Her BP is improved with IV fluids. Metoprolol was restarted without problems. She can resume losartan (6) Hypothyroidism Status: Chronic Hospital Course & Plan: Continue levothyroxine. TSH is normal at 4.63. (7) Stasis dermatitis Status: Chronic Hospital Course & Plan: The patient sees Mat Lopez for her lower extremity dermatitis. She has been using a prescribed a steroid cream for this (clobetasol and TAC creams). (8) Chronic respiratory failure with hypoxia Status: Chronic Hospital Course & Plan: Continue O2 to keep sats 90% or greater. (9) Chronic back pain Status: Chronic Hospital Course & Plan: The patient takes gabapentin, duloxetine, as well as MS Contin 15mg qid and Percocet at home. See above. Departure Weight (Pounds): 186 Weight (Ounces): 6.0 Result Diagram: 08/20/1852008/20/18520 Item Value Date Time White Blood Count 8.4 k/uL 08/17/18 1728 White Blood Count 7.9 k/uL 08/18/18 0527 White Blood Count 5.9 k/uL 08/19/18 0528 White Blood Count 5.5 k/uL 08/20/18 0521 Hemoglobin 15.5 g/dL 08/17/18 1728 Hemoglobin 14.0 g/dL 08/18/18 05 Hemoglobin 14.1 g/dL 08/19/18 05 Hemoglobin 14.0 g/dL 08/20/18 05 Platelet Count 301 K/uL 08/20/18 05 Platelet Count 291 K/uL 08/19/18 0528 Platelet Count 325 K/uL 08/18/18 0527 Platelet Count 357 K/uL 08/17/18 1728 Prothromb Time International Ratio 1.06 08/17/18 1728 Troponin I 0.764 ng/ml *H 08/17/18 1728 Aspartate Amino Transf (AST/SGOT) 51 U/L H 08/17/18 1728 Alanine Aminotransferase (ALT/SGPT) 38 U/L 08/17/18 1728 Alkaline Phosphatase 48 U/L 08/17/18 1728 Blood Urea Nitrogen 52 mg/dl H 08/17/18 1728 Creatinine 6.40 mg/dl *H 08/17/18 1728 Blood Urea Nitrogen 51 mg/dl H 08/17/18 1937 Creatinine 6.00 mg/dl *H 08/17/18 1937 Blood Urea Nitrogen 51 mg/dl H 08/18/18 05 Creatinine 4.70 mg/dl *H 08/18/18 05 Troponin I 0.717 ng/ml *H 08/17/18 1937 Troponin I 0.546 ng/ml *H 08/18/18 05 Troponin I 0.171 ng/ml *H 08/20/18 05 Blood Urea Nitrogen 20 mg/dl H 08/20/18 0521 Creatinine 0.90 mg/dl 08/20/18 05 Blood Urea Nitrogen 35 mg/dl H 08/19/18 05 Creatinine 1.80 mg/dl H 08/19/18 0528 Urine Leukocyte Esterase Small H 08/17/18 1830 Urine RBC 67 /HPF 08/17/18 1830 Urine WBC 5 /HPF 08/17/18 1830 Urine Squamous Epithelial Cells Many /LPF H 08/17/181829 Urine Bilirubin Small 08/17/181829 Urine Ketones Trace mg/dL 08/17/181829 Urine Blood Moderate 08/17/181829 Urine Bacteria Negative /HPF 08/17/181829 Urine Hyaline Casts Few /LPF 08/17/181829 Imaging 08/18/18 Echo - See official report. EF 60-65%. Mod TR. LV is enlarged. No regional wall motion abnormalities. 08/17/18 CXR - Chronic findings with no evidence of acute cardiopulmonary disease. 08/17/[address] - 1. No intracranial hemorrhage or mass effect. 2. No CT findings of acute ischemia. Condition: Improved Discharge: Home PT/OT Follow Up For: PT For Strengthening, OT For ADL's, PT Evaluation and Treat, OT Evaluation and Treat Home Health RN Follow Up For: Medication Management, Nursing Assessment, Wound [facility] OPERATIONS MANAGER Follow Up For: ADL Assistance Discharge Instructions Home Meds Active Scripts Triamcinolone Acetonide 0.1% Cr 15 Gm Tube (TRIAMCINOLONE ACETONIDE 0.1% CREAM) 15 Gm Cream..g., 1 MARK TP BID for 30 Days, #30 TUBE 1 Refill Apply small amount twice daily under breast and groin creases followed by Zeasorb powder. Prov:MAT LOPEZ 08/07/18 Clobetasol Propionate (CLOBETASOL PROPIONATE) 15 Gm Oint...g., 1 MARK TP BID for 30 Days, #30 TUBE 1 Refill Apply twice a day to legs only as needed to control scale. Do not use on face, neck, underarms or groin. Prov:MAT LOPEZ 08/07/18 Losartan Potassium (LOSARTAN POTASSIUM) 100 Mg Tablet, 100 MG PO QDAY, #30 TAB 0 Refills Prov:EMA QUIROZ MD 07/08/18 Oxybutynin Chloride (OXYBUTYNIN CHLORIDE) 5 Mg Tablet, 1 TAB PO QDAY, #90 TAB 3 Refills Prov:EMA QUIROZ MD 03/27/18 Levothyroxine Sodium (SYNTHROID) 112 Mcg Tablet, 112 MCG PO QDAY, #90 TAB 3 Refills Prov:EMA QUIROZ MD 07/12/17 Gabapentin (GABAPENTIN) 300 Mg Capsule, 3 TAB PO QAM, #630 CAPSULE 3 Refills TAKE 2 in am and 5 in pm Prov:EMA QUIROZ MD 02/11/17 Duloxetine HCl (Duloxetine HCl) 60 Mg Capsule.dr, 2 CAP PO DAILY, #180 TAB 3 Refills Prov:EMA QUIROZ MD 02/11/17 Metoprolol Succinate (METOPROLOL SUCCINATE) 100 Mg Tab.er.24h, 1 TAB PO QDAY, #90 TAB 3 Refills Prov:EMA QUIROZ MD 02/11/17 Allopurinol (Allopurinol) 300 Mg Tablet, 1 TAB PO DAILY, #90 TAB 3 Refills Prov:EMA QUIROZ MD 02/11/17 Cyclobenzaprine Hcl (CYCLOBENZAPRINE HCL) 10 Mg Tablet, 1 TAB PO QHS, #90 TAB 3 Refills Prov:EMA QUIROZ MD 02/11/17 [place]-3 (FISH OIL 500 MG SOFTGEL) 500 Mg Cap, 500 MG PO QDAY, #30 CAP Prov:CHRISTY BRANHAM MD 10/19/15 Cyclosporine (RESTASIS) 1 Each Droperette, 1 EACH OU BID, #1 BOT Prov:CHRISTY BRANHAM MD 10/19/15 Reported Medications Oxycodone Hcl/Acetaminophen (OXYCODON-ACETAMINOPHEN 7.5-325) 1 Each Tablet, 1 TAB PO Q4H PRN for PAIN, TAB 08/20/18 Docusate Sodium (DOCUSATE SODIUM) 100 Mg Capsule, 100 MG PO DAILY, CAPSULE 08/04/18 Cyanocobalamin (Vitamin B-12) (VITAMIN B-12) 500 Mcg Tablet, 500 MCG PO DAILY 08/04/18 Cholecalciferol (Vitamin D3) (VITAMIN D) 400 Unit Capsule, 125 MCG PO DAILY, CAPSULE 08/04/18 Loratadine (LORATADINE) 10 Mg Tablet, 10 MG PO DAILY 08/04/18 Aspirin (ASPIRIN) 81 Mg Tab.chew, 81 MG PO QDAY, TAB.CHEW 08/04/18 Gluc Regalado/Chondro Regalado A/Vit C/Mn (GLUCOSAMINE CHONDROITIN TAB) 1 Each Tablet, 1 EACH PO BID 08/04/18 Aspirin/Acetaminophen/Caffeine (EXCEDRIN EXTRA STRENGTH CAPLET) 1 Each Tablet, 1 EACH PO PRN 02/11/17 Multivits,Th W-Fe,Other Min (COMPLETE MULTIVITAMIN) 1 Each Tablet, 1 TAB PO DAILY 09/08/15 [Oxygen ] No Conflict Check, 2-3 L NA DAILY ON CONTINUOUSLY 08/26/13 Morphine Sulfate (MS CONTIN) 15 Mg Tablet.er, 15 MG PO QID 08/23/13 Discontinued Reported Medications Diphenhydramine Hcl (DIPHENHYDRAMINE HCL) 25 Mg Tablet, 25 MG PO PRN, TAB 02/11/17 Discontinued Scripts Cephalexin 500 Mg Tab (KEFLEX 500 MG TAB) 500 Mg Tablet, 1 TAB PO BID for 7 Days, #14 TAB 0 Refills Prov:MAT LOPEZ 08/07/18 Talc/Cellulos/Chloroxy/Aldioxa (ZEASORB POWDER) 71 Gm Powder, 1 MARK TP BID for 30 Days, #1 BOTTLE 2 Refills Apply powder over triamcinolone cream twice daily to areas under breast and groin creases. Prov:MAT LOPEZ 08/07/18 Fluconazole (DIFLUCAN) 150 Mg Tablet, 150 MG PO QDAY, #1 TAB Prov:JO CALDERA DO 07/30/18 Fenofibrate,Micronized (FENOFIBRATE) 134 Mg Capsule, 134 MG PO QDAY, #30 CAPSULE 11 Refills Prov:EMA QUIROZ MD 08/14/17 Hydrocortisone 2.5 % 30 GM CREAM (Hydrocortisone 2.5 % 30 GM CREAM) 2.5 % Cream.appl, 1 MARK TP BID for 30 Days, #1 TUBE 1 Refill Apply to face only. Prov:MAT LOPEZ 07/11/17 Hydrocortisone Acetate (ANUSOL-HC) 25 Mg Supp.rect, 1 SUPP.RECT RC BID, #30 SUPP.RECT 0 Refills Prov:SHEILA SPARKS MD 05/22/17 Diet: Regular Activity: As Tolerated Special Instructions: Follow up with your PCP in 1-2 weeks to follow up the hospitalization and schedule a stress test with imaging. Go to the ER for confusion, fevers, chills, chest pain, SOB, or focal weakness Copies to: EMA QUIROZ MD ; Venous Thromboembolism Antithrombotics Is Pt On Any Antithrombotics?: No [id number] Certification Face to Face Home Health Certification Patient's Primary Care Provider: Ema Quiroz MD Institutional Provider conducted the [id number] encounter. Electronic Undersigning Physician Certifies Home Health. I certify that the patient has been under my care and that I had a [id number] encounter that meets the physician [id number] encounter requirements with this patient. This patient is home-bound due to safety issues and continues to require assistance with ADL's. I certify that based on my findings, that Nursing, Aides and the following Home Health services are medically necessary: Medical Necessity: Nursing, Rehab Date Face to Face Conducted: August 20, 2018 Problem Qualifiers (1) Acute renal failure: Acute renal failure type: unspecified Qualified Codes: N17.9 - Acute kidney failure, unspecified (2) Hypertension: Hypertension type: essential hypertension Qualified Codes: I10 - Essential (primary) hypertension HAZEL BURGER MD August 20, 2018 14:12
== END 2018-08-20 17:45 | disposition home health service (06) | DRG 92 ==
LOC: ER 16:29 → MED 20:55
PROVIDERS: ADMIT Internal Medicine; ATTEND Internal Medicine
PROC: 0JD93ZZ Extraction of Buttock Subcutaneous Tissue and Fascia, Percutaneous Approach (ICD-10-PCS; principal; 2018-08-18)
DX: G92 Toxic encephalopathy (principal); N17.9 Acute kidney failure, unspecified; J96.11 Chronic respiratory failure with hypoxia; E86.0 Dehydration; L89.321 Pressure ulcer of left buttock, stage 1; L89.312 Pressure ulcer of right buttock, stage 2; I87.2 Venous insufficiency (chronic) (peripheral); G89.29 Other chronic pain; I95.9 Hypotension, unspecified; T42.75XA Adverse effect of unspecified antiepileptic and sedative-hypnotic drugs, initial encounter; E03.9 Hypothyroidism, unspecified; E78.5 Hyperlipidemia, unspecified; I10 Essential (primary) hypertension; M79.7 Fibromyalgia; N20.0 Calculus of kidney; K76.0 Fatty (change of) liver, not elsewhere classified; J84.112 Idiopathic pulmonary fibrosis; R32 Unspecified urinary incontinence; E78.2 Mixed hyperlipidemia; E55.9 Vitamin D deficiency, unspecified; Z88.2 Allergy status to sulfonamides; Z90.710 Acquired absence of both cervix and uterus; Z87.891 Personal history of nicotine dependence; Z91.19 Patient's noncompliance with other medical treatment and regimen
CPT/HCPCS: 36415; 70450; 71046; 81001; 82040; 82247; 82310; 82374; 82435; 82565; 82947; 84075; 84132; 84155; 84295; 84443; 84450; 84460; 84484; 84520; 85025; 85610; 85730; 93005; 93306; 96360; 97161; 97166; 99285; C1758; J7030

== ENCOUNTER → 2018-09-24 | Outpatient (CLI) | payer MEDICARE ==
[2017-03-29 14:28] VITALS: BMI 29.4
[~2018-09-24] MED LIST changes: -CYAN500T38 PO; +CYAN500T39 PO; +DICL-190 PO; +OXYC-374 PO
== END ==
LOC: LAB 15:10
PROVIDERS: ATTEND Emergency Medicine
DX: I10 Essential (primary) hypertension (principal)
CPT/HCPCS: 36415; 81001; 82310; 82374; 82435; 82565; 82947; 84132; 84295; 84520

== ENCOUNTER → 2018-10-06 | Outpatient (REF) | payer MEDICARE ==
[2017-03-29 14:28] VITALS: BMI 29.4
[~2018-10-06] MED LIST changes: +LEVO250T41 PO
== END ==
LOC: ZZSENDIN 11:56
PROVIDERS: ATTEND Emergency Medicine
DX: N39.0 Urinary tract infection, site not specified (principal)
CPT/HCPCS: 81001

== ENCOUNTER → 2018-10-08 | Outpatient (REF) | payer MEDICARE ==
[2017-03-29 14:28] VITALS: BMI 29.4
== END ==
LOC: ZZSENDIN 19:13
PROVIDERS: ATTEND Nurse Practitioner Family
DX: N39.0 Urinary tract infection, site not specified (principal); B95.2 Enterococcus as the cause of diseases classified elsewhere
CPT/HCPCS: 81001; 87077; 87088; 87186

== ENCOUNTER → 2018-10-20 | Outpatient (REF) | payer MEDICARE ==
[2017-03-29 14:28] VITALS: BMI 29.4
== END ==
LOC: ZZSENDIN 13:01
PROVIDERS: ATTEND Emergency Medicine
DX: N39.0 Urinary tract infection, site not specified (principal)
CPT/HCPCS: 81001